=== PATIENT | female | born 1960 | race Caucasian/White ===

== ENCOUNTER 2019-11-15 09:12 | Outpatient (CLI) | payer OTHER, SELFPAY ==
--- NOTE | ~2019-11-15 | MM_ITS ---
EXAMINATION: MM screening [facility] BI w renee HISTORY: Screening mammogram TECHNIQUE: Craniocaudal and mediolateral oblique 3-D tomosynthesis images were obtained and synthetic 2-D images were generated. CAD analysis was submitted and interpreted. COMPARISON: Comparison to multiple prior studies sequentially, with oldest reviewed study dated 05/17. BREAST PARENCHYMAL COMPOSITION: There are scattered areas of fibroglandular density. FINDINGS: There are bilateral subpectoral silicone implants. There is no evidence of suspicious mass, calcification, or architectural distortion to suggest malignancy in either breast. There has been no suspicious interval change. IMPRESSION: 1. No mammographic evidence of malignancy. 2. Recommend routine screening mammography in one year. BI-RADS Category 1: Negative Reviewed, dictated and finalized at location A.
== END 2019-11-15 09:13 | disposition home or self-care (01) ==
LOC: ANHIMG 09:19
PROVIDERS: PCP Family Medicine Adolescent Medicine; Visit Provider Family Medicine Adolescent Medicine
DX: Z12.31 Encounter for screening mammogram for malignant neoplasm of breast (principal)
CPT/HCPCS: 77063; 77067

== ENCOUNTER 2020-11-24 11:48 | Outpatient (CLI) | payer OTHER, SELFPAY ==
--- NOTE | ~2020-11-24 | CT_ITS ---
EXAMINATION: CT abdomen pelvis w con DATE: 11/24/2020 12:15 INDICATION: Right lower quadrant abdominal pain and epigastric pain. TECHNIQUE: Computed tomography (CT) of the abdomen and pelvis was performed with 100 mL Omnipaque-350 intravenous contrast. Automated exposure control and iterative reconstruction technique were employe d. The dose-length product was 240.94 mGy-cm. COMPARISON: Abdomen and pelvis CT dated 08/12/2007 and MRI dated 08/23/2007 FINDINGS: Bilateral breast implants on the nuclear auxiliary operator topogram, the left partially visualized on the CT images. Mini mal lingular atelectasis visualized inferior portion of the heart appears normal. No pericardial or p leural effusion. Small sliding-type hiatal hernia. Focal hepatic steatosis at the ligamentum teres. S mall region of parenchymal scarring with capsular retraction at the periphery of segment 3 of the mikael er at the site of a couple prior 1.8 and 1.5 cm hepatic cyst. There are 3 additional low-attenuation lesions in the liver measuring between 7 mm and 1.4 cm in maximal diameters corresponding to addition al cysts on the prior MRI. Gallbladder, spleen, pancreas, bilateral adrenal glands and kidneys are no rmal. There are multiple loops of dilated jejunum measuring up to 4.4 cm in maximal diameter. No sing le clearly defined transition point identified however there are of the decompressed loops of more di stal small bowel with at least one loop demonstrating edematous wall thickening consistent with enter itis. The colon is largely decompressed with a few scattered diverticula without adjacent inflammator y change to suggest diverticulitis. Small amount of gas within a short appendix versus appendiceal st ump at the tip of the cecum without adjacent inflammatory stranding to suggest acute appendicitis. Th e uterus and bilateral ovaries are not identified and have likely been surgically resected. There are several clips in the left and right pelvis consistent with prior pelvic lymph node dissection. Decom pressed bladder is unremarkable. Small amount of ascites in the pelvis. No abscess or free intraperit ariza gas. No pathologically enlarged abdominal or pelvic lymphadenopathy. The major vessels in the a bdomen and pelvis appear normal with no thrombosis or evident atherosclerosis or stenosis. 23 degree thoracolumbar dextroscoliosis with mild to moderate spondylosis. IMPRESSION: 1. Multiple dilated loops of small bowel in the abdomen without a discrete transition point but with wall thickening involving one of several decompressed loops of small bowel in the pelvis. This favors an ileus related to enteritis over early or partial small bowel obstruction which could be related t o stricture. Enteritis could be either infectious, inflammatory or less likely ischemic in etiology. 2. Small sliding-type hiatal hernia. 3. Small amount of likely reactive ascites in the pelvis. No abscess. Reviewed, dictated and finalized at location A. IMPRESSION: 1. Multiple dilated loops of small bowel in the abdomen without a discrete gale sition point but with wall thickening involving one of several decompressed loo ps of small bowel in the pelvis. This favors an ileus related to enteritis over early or partial small bowel obstruction which could be related to stricture. Enteritis could be either infectious, inflammatory or less likely ischemic in e tiology. 2. Small sliding-type hiatal hernia. 3. Small amount of likely reactive ascites in the pelvis. No abscess.
== END 2020-11-24 11:49 | disposition home or self-care (01) ==
LOC: ANHIMG 11:54
PROVIDERS: PCP Family Medicine Adolescent Medicine; Visit Provider Family Medicine Adolescent Medicine
DX: R10.13 Epigastric pain (principal); K44.9 Diaphragmatic hernia without obstruction or gangrene
CPT/HCPCS: 74177; Q9967

== ENCOUNTER → 2020-12-03 13:58 | Outpatient (CLI) | payer OTHER, SELFPAY ==
--- NOTE | ~2020-12-03 | MM_ITS ---
EXAMINATION: MM scrn evan implant BI w renee HISTORY: Screening mammogram TECHNIQUE: Craniocaudal and mediolateral oblique 3-D tomosynthesis images with implant displacement a nd synthetic 2-D images were generated. Craniocaudal and mediolateral oblique views of the breasts wi thout implant displacement were obtained using full field digital mammography. CAD analysis was submi tted and interpreted. COMPARISON: 06/02/2016 BREAST PARENCHYMAL COMPOSITION: The breasts are heterogeneously dense, which may obscure small masses . FINDINGS: There is no evidence of suspicious mass, calcification, or architectural distortion to sugg est malignancy in either breast. There has been no suspicious interval change. IMPRESSION: 1. No mammographic evidence of malignancy. 2. Recommend routine screening mammography in one year. BI-RADS Category 1: Negative Reviewed, dictated and finalized at location A.
== END ==
PROVIDERS: PCP Family Medicine Adolescent Medicine; Visit Provider Family Medicine Adolescent Medicine
DX: Z12.31 Encounter for screening mammogram for malignant neoplasm of breast (principal)
CPT/HCPCS: 77063; 77067

== ENCOUNTER → 2022-02-17 10:13 | Outpatient (CLI) | payer OTHER, SELFPAY ==
--- NOTE | ~2022-02-17 | MM_ITS ---
EXAMINATION: MM scrn evan implant BI w renee HISTORY: Screening mammogram TECHNIQUE: Craniocaudal and mediolateral oblique 3-D tomosynthesis images with implant displacement a nd synthetic 2-D images were generated. Craniocaudal and mediolateral oblique views of the breasts wi thout implant displacement were obtained using full field digital mammography. CAD analysis was submi tted and interpreted. COMPARISON: Comparison to multiple prior studies sequentially, with oldest reviewed study dated 05/16. BREAST PARENCHYMAL COMPOSITION: There are scattered areas of fibroglandular density. FINDINGS: There is no evidence of suspicious mass, calcification, or architectural distortion to sugg est malignancy in either breast. There has been no suspicious interval change. IMPRESSION: 1. No mammographic evidence of malignancy. 2. Recommend routine screening mammography in one year. BI-RADS Category 1: Negative Reviewed, dictated and finalized at location A.
== END ==
PROVIDERS: PCP Family Medicine Adolescent Medicine; Visit Provider Family Medicine Adolescent Medicine
DX: Z12.31 Encounter for screening mammogram for malignant neoplasm of breast (principal)
CPT/HCPCS: 77063; 77067

== ENCOUNTER 2022-08-12 18:43 | Emergency (ER) | payer OTHER, SELFPAY ==
--- NOTE | ~2022-08-12 | XR_ITS ---
EXAMINATION: XR elbow RT min 3V DATE: 08/12/2022 19:44 INDICATION: Right elbow injury. TECHNIQUE: 4 views of right elbow were obtained. COMPARISON: None. FINDINGS: There is an oblique supracondylar fracture of distal humerus. The distal fracture fragment demonstrates 6 mm medial displacement, impaction, and rotation. The elbow joint spaces are normal. Th ere is an elbow joint effusion. IMPRESSION: 1. Oblique supracondylar fracture of distal humerus. Reviewed, dictated and finalized at location A. CTURAL FITTER
[2022-08-12 18:45] VITALS: BP 124/74; PULSE 77; RESP 20; TEMP 36.3; O2SAT 100
[2022-08-12] MEDS: ACETAMINOPHEN 500 MG TABLET 1000 MG PO (19:40)
--- NOTE | 2022-08-12 19:47 | ED.GENADULT ---
HPI - General Adult General Chief complaint: Extremity Injury, Upper Stated complaint: R ELBOW INJURY Time Seen by Provider: 08/12/22 19:08 History of Present Illness HPI narrative: This is a 62-year-old female presenting ED with an elbow injury. She was climbing over a dog gate when she tripped fell forward onto an outstretched hand. She then had immediate pain in her elbow. She can emergency department for evaluation. She denies numbness tingling or weakness in the extremity. She is still able to move her fingers. Related Data Home Medications Medication Instructions Recorded Confirmed ascorbic acid 125 mg-collagen, 1 cap PO DAILY 02/16/22 02/16/22 hydrolyzed 740 mg capsule (Collagen Plus Vitamin C) calcium carbonate 600 mg calcium 600 mg PO DAILY 02/16/22 02/16/22 (1,500 mg) tablet (Calcium) magnesium 250 mg tablet 250 mg PO DAILY 02/16/22 02/16/22 multivitamin (Daily Multi-Vitamin 1 tablet PO DAILY 02/16/22 02/16/22 tablet) potassium citrate 99 mg capsule 99 mg PO DAILY 02/16/22 02/16/22 valacyclovir 500 mg tablet 500 mg PO DAILY 02/16/22 02/16/22 vitamin E (dl, acetate) 180 mg 180 mg PO DAILY 02/16/22 02/16/22 (400 unit) capsule Allergies Allergy/AdvReac Type Severity Reaction Status Date / Time shellfish derived Allergy Unknown Difficulty Verified 08/12/22 19:10 Swallowing Canned Fish Allergy Unknown Difficulty Uncoded 08/12/22 19:10 Swallowing SHELLFISH Allergy Unknown Difficulty Uncoded 08/12/22 19:10 Breathing PMFSH Past Medical History Medical History Cervical cancer Scoliosis Surgical History Surgical History H/O hysterectomy with oophorectomy 2002 Hx of breast augmentation Family History Family History Mother Family history of coronary artery disease Patient's mother is in good health Grandparent Family history of type 2 diabetes mellitus Father Hypertension Sibling Patient's sister is in good health Other Cerebrovascular accident Family history of malignant neoplasm of male breast Social History Social History Smoking status: Never smoker Second hand tobacco smoke exposure: Yes Alcohol intake: never Substance use: never Substance use type: does not use Living arrangements: with family Occupation/Education: occupation Gender identity (if verbalized by the patient): Female Sexual Orientation (if Verbalized by the Patient): Straight or Heterosexual Spiritual care concerns: No Agree to blood products: Yes Exam Narrative: APPEARANCE: No apparent distress. Patient is holding her elbow close to her body Head: atraumatic. EYES: EOMI, NOSE: Atraumatic NECK: Trachea midline RESPIRATORY: No increased rate of breathing CARDIOVASCULAR: RRR, ABDOMINAL: Non-distended MUSCULOSKELETAl: focal exam of the right elbow revealed no obvious deformity or ecchymosis. Patient is able to give a thumbs up, okay sign and dorsiflex the wrist against pressure. Cap refills less than 2 seconds and radial ulnar pulses are intact. NEURO: Alert. Moving 4/4 extremities SKIN:: Warm, dry. Normal color PSYCHIATRIC: Normal affect Course Vital Signs Vital signs: Vital Signs Temperature 97.3 F L 08/12/22 18:45 Pulse Rate 77 08/12/22 18:45 Respiratory Rate 20 08/12/22 18:45 Blood Pressure 124/74 08/12/22 18:45 Pulse Oximetry 100 08/12/22 18:45 Oxygen Delivery Room Air 08/12/22 18:45 Temperature 97.3 F L 08/12/22 18:45 Pulse Rate 77 08/12/22 18:45 Respiratory Rate 20 08/12/22 18:45 Blood Pressure 124/74 08/12/22 18:45 Pulse Oximetry 100 08/12/22 18:45 Oxygen Delivery Room Air 08/12/22 18:45 Medical Decision Making [facility] Narrative Medical decision making narrative: -Presentation: 62
[2022-08-12 21:26] LABS: Basophils Percent Auto 0.3 % (0.2-1.2); Eosinophils Absolute Auto 0.1 K/mm3 (0-0.3); Eosinophils Percent Auto 1.5 % (0-4.4); Hematocrit 37.8 % (37.0-47.0); Hemoglobin 12.7 g/dL (12.0-15.0); Immature Granulocyte Absolute 0.02 K/mm3 (0.00-0.031); Immature Granulocyte Percent A 0.2 % (0-0.5); Lymphocytes Absolute Auto 0.73 K/mm3 (0.9-3.2); Lymphocytes Percent Auto 8.4 % (18.3-44.2); Mean Corpuscular HGB Conc 33.6 g/dl (32-36); Mean Corpuscular Hemoglobin 31.1 pg (26-34); Mean Corpuscular Volume 92.4 fl (80-100); Mean Platelet Volume 9.4 fl (7.4-10.4); Monocytes Absolute Auto 0.6 K/mm3 (0.1-0.6); Monocytes Percent Auto 6.5 % (2.6-8.5); Neutrophils Absolute Auto 7.2 K/mm3 (1.3-6.7); Neutrophils Percent Auto 83.1 % (45.5-73.1); Platelet Count Result 260 k/mm3 (150-375); Red Blood Count 4.09 M/mm3 (4.2-5.4); White Blood Count 8.6 K/mm3 (4.5-10.0)
[2022-08-12 21:36] LABS: Influenza A QL RT-PCR Negative (Negative); Influenza B QL RT-PCR Negative (Negative); SARS-CoV-2 RNA PCR Negative
[2022-08-12 21:38] LABS: Prothrombin Time 12.9 Seconds (11.1-14.7)
[2022-08-12 21:39] LABS: Partial Thromboplastin Time 24.4 SECONDS (22.3-36.8)
[2022-08-12 21:41] LABS: Anion Gap 4 mmol/L (8-16); Blood Urea Nitrogen 11 mg/dL (7-17); Calcium 8.4 mg/dL (8.4-10.2); Carbon Dioxide 28 mmol/L (22-30); Chloride 98 mmol/L (98-107); Estimated CRCL calculation 75 ml/min; Estimated Glomerular Filt Rate > 60; Glucose 117 mg/dL (65-110); Magnesium 1.8 mg/dL (1.6-2.3); Potassium 3.4 mmol/L (3.4-5.0); Sodium 130 mmol/L (137-145)
[2022-08-12 22:47] VITALS: BP 134/80; PULSE 97; RESP 18; O2SAT 98
== END 2022-08-12 22:49 | disposition short-term general hospital (02) ==
PROVIDERS: Emergency Provider Emergency Medicine; PCP Family Medicine Adolescent Medicine
DX: S42.411A Displaced simple supracondylar fracture without intercondylar fracture of right humerus, initial encounter for closed fracture (principal); Z20.822 Contact with and (suspected) exposure to COVID-19; I10 Essential (primary) hypertension; Z85.41 Personal history of malignant neoplasm of cervix uteri; W18.09XA Striking against other object with subsequent fall, initial encounter
CPT/HCPCS: 36415; 73080; 80048; 83735; 85025; 85610; 85730; 86850; 86900; 86901; 87636; 99285; A4565; A9270

== ENCOUNTER 2023-02-26 03:17 | Day surgery (SDC) | payer OTHER, SELFPAY ==
[2023-02-14 12:33] VITALS: BMI 19.1
[2023-02-26 07:11] VITALS: BP 125/74; PULSE 69; RESP 16; TEMP 36.6; O2SAT 100
[2023-02-26] MEDS: LACTATED RINGERS 1,000 ML 150 ML IV CONT (07:15)
--- NOTE | 2023-02-26 07:26 | PM.HPGS ---
History of Present Illness History of Present Illness Consent: Risks, benefits, and alternatives have been discussed and questions answered. Patient agrees to proceed with procedure. Chief complaint: occult blood in stool Narrative: Glo Junior is a 63 year old female Presents for colonoscopy. Patient recently found to have positive FIT test. Patient denies any obvious blood in her stools. Her current weight appetite bowel movements are normal. Patient denies abdominal pain. She has had no bleeding. Family history noncontributory. Review of Systems Review of Systems: Review of systems noncontributory. [facility] Past Medical History Medical History Cervical cancer Scoliosis Surgical History Surgical History H/O hysterectomy with oophorectomy 2002 Hx of breast augmentation Family History Family History Mother Family history of coronary artery disease Patient's mother is in good health Grandparent Family history of type 2 diabetes mellitus Father Hypertension Sibling Patient's sister is in good health Other Cerebrovascular accident Family history of malignant neoplasm of male breast Social History Social History (Updated 12/20/22 @ 13:46 by Micaela Hanley CMA) Smoking status: Never smoker Second hand tobacco smoke exposure: Yes Alcohol intake: current Substance use: never Substance use type: does not use Lack of Transportation: No Lack of Food: Never True Current Housing: I Have Housing Concerned About Future Housing: No Difficulty Paying Gas/Electric Bills: No Difficulty Paying for Meds: No Currently Unemployed: YES Education: High School Diploma/GED Difficulty w/ Childcare or Family Care: No Living arrangements: with family Occupation/Education: occupation Gender identity (if verbalized by the patient): Female Sexual Orientation (if Verbalized by the Patient): Straight or Heterosexual Spiritual care concerns: No Agree to blood products: Yes Meds Home Medications and Allergies Home Medications Medication Instructions Recorded Confirmed Type ascorbic acid 125 mg-collagen, 1 cap PO DAILY 02/16/22 02/26/23 History hydrolyzed 740 mg capsule (Collagen Plus Vitamin C) calcium carbonate 600 mg calcium 600 mg PO DAILY 02/16/22 02/26/23 History (1,500 mg) tablet (Calcium) magnesium 250 mg tablet 250 mg PO DAILY 02/16/22 02/26/23 History multivitamin (Daily Multi-Vitamin 1 tablet PO DAILY 02/16/22 02/26/23 History tablet) potassium citrate 99 mg capsule 99 mg PO DAILY 02/16/22 02/26/23 History valacyclovir 500 mg tablet 500 mg PO DAILY 02/16/22 02/26/23 History vitamin E (dl, acetate) 180 mg 180 mg PO DAILY 02/16/22 02/26/23 History (400 unit) capsule propranolol 20 mg tablet 20 mg PO BID #60 tabs 09/18/22 02/26/23 Rx alprazolam 1 mg tablet 1 mg PO BID #60 tabs 02/06/23 02/26/23 Rx zolpidem 10 mg tablet 10 mg PO QHS PRN sleep #30 tabs 02/06/23 02/26/23 Rx biotin 1,000 mcg chewable tablet 1,000 mcg PO DAILY 02/14/23 02/26/23 History cholecalciferol (vitamin D3) 125 125 mcg PO DAILY 02/14/23 02/26/23 History mcg (5,000 unit) tablet (Vitamin D3) zinc 50 mg tablet 50 mg PO DAILY 02/14/23 02/26/23 History Allergies Allergy/AdvReac Type Severity Reaction Status Date / Time shellfish derived Allergy Severe Difficulty Verified 02/26/23 07:10 Swallowing Canned Fish Allergy Severe Difficulty Uncoded 02/26/23 07:10 Swallowing Vital Signs Vital Signs - 24 hr 02/26/23 07:11 Temperature 97.9 F Pulse Rate 69 Respiratory Rate 16 Blood Pressure 125/74 Pulse Oximetry 100 Oxygen Delivery Room Air Exam Narrative: Physical exam reveals patient to be alert. Vital signs stable. HEENT exam is unremarkable. Patient is anicteric. Lungs are clear to
--- NOTE | 2023-02-26 08:22 | WPDANESEPPF ---
Anes - Initial Pre Proc Eval Procedure: Operation Date: 02/26/23 08:30 Proposed Procedures p Colonoscopy - Bert Adair MD Date/Time: 02/26/23 08:22 Surgeon: Bert Adair MD Pre Op Diagnosis: occult blood in stool Patient Data Age: 63 Gender: F Height: 1.7 m Weight: 53.1 kg Last Vital Signs Temp 97.9 F 02/26/23 07:11 Pulse 69 02/26/23 07:11 Resp 16 02/26/23 07:11 BP 125/74 02/26/23 07:11 Pulse Ox 100 02/26/23 07:11 O2 Del Method Room Air 02/26/23 07:11 Allergies Allergy/AdvReac Type Severity Reaction Status Date / Time shellfish derived Allergy Severe Difficulty Verified 02/26/23 07:10 Swallowing Canned Fish Allergy Severe Difficulty Uncoded 02/26/23 07:10 Swallowing Home Medications Medication Instructions Recorded Confirmed Type ascorbic acid 125 mg-collagen, 1 cap PO DAILY 02/16/22 02/26/23 History hydrolyzed 740 mg capsule (Collagen Plus Vitamin C) calcium carbonate 600 mg calcium 600 mg PO DAILY 02/16/22 02/26/23 History (1,500 mg) tablet (Calcium) magnesium 250 mg tablet 250 mg PO DAILY 02/16/22 02/26/23 History multivitamin (Daily Multi-Vitamin 1 tablet PO DAILY 02/16/22 02/26/23 History tablet) potassium citrate 99 mg capsule 99 mg PO DAILY 02/16/22 02/26/23 History valacyclovir 500 mg tablet 500 mg PO DAILY 02/16/22 02/26/23 History vitamin E (dl, acetate) 180 mg 180 mg PO DAILY 02/16/22 02/26/23 History (400 unit) capsule propranolol 20 mg tablet 20 mg PO BID #60 tabs 09/18/22 02/26/23 Rx alprazolam 1 mg tablet 1 mg PO BID #60 tabs 02/06/23 02/26/23 Rx zolpidem 10 mg tablet 10 mg PO QHS PRN sleep #30 tabs 02/06/23 02/26/23 Rx biotin 1,000 mcg chewable tablet 1,000 mcg PO DAILY 02/14/23 02/26/23 History cholecalciferol (vitamin D3) 125 125 mcg PO DAILY 02/14/23 02/26/23 History mcg (5,000 unit) tablet (Vitamin D3) zinc 50 mg tablet 50 mg PO DAILY 02/14/23 02/26/23 History Patient hx anesthesia problems: none Family hx anesthesia problems: none Results Review: All pre-operative results and documents have been reviewed as part of the pre-operative evaluation. [facility] Past Medical History Medical History Cervical cancer Scoliosis Surgical History Surgical History H/O hysterectomy with oophorectomy 2002 Hx of breast augmentation Family History Family History Mother Family history of coronary artery disease Patient's mother is in good health Grandparent Family history of type 2 diabetes mellitus Father Hypertension Sibling Patient's sister is in good health Other Cerebrovascular accident Family history of malignant neoplasm of male breast Social History Social History (Updated 12/20/22 @ 13:46 by Micaela Hanley [facility]) Smoking status: Never smoker Second hand tobacco smoke exposure: Yes Alcohol intake: current Substance use: never Substance use type: does not use Lack of Transportation: No Lack of Food: Never True Current Housing: I Have Housing Concerned About Future Housing: No Difficulty Paying Gas/Electric Bills: No Difficulty Paying for Meds: No Currently Unemployed: YES Education: High School Diploma/GED Difficulty w/ Childcare or Family Care: No Living arrangements: with family Occupation/Education: occupation Gender identity (if verbalized by the patient): Female Sexual Orientation (if Verbalized by the Patient): Straight or Heterosexual Spiritual care concerns: No Agree to blood products: Yes Anes - Eval Final PreProcedure Day of Procedure 02/26/23 08:22 Patient weight: normal Heart: regular rate and rhythm Lungs: clear to auscultation Airway: Mallampati scale class II Neurological: alert and oriented Last oral intake: >/= 8 hours ASA classification: II Emergent: no Anesthetic plan
[2023-02-26 08:43] VITALS: BP 113/51; PULSE 77; RESP 18; O2SAT 100
[2023-02-26 08:53] VITALS: BP 106/70; PULSE 68; RESP 22; O2SAT 100
[2023-02-26 09:03] VITALS: BP 104/68; PULSE 70; RESP 16; O2SAT 100
== END 2023-02-26 09:08 | disposition home or self-care (01) ==
PROVIDERS: PCP Family Medicine Adolescent Medicine; Visit Provider Internal Medicine Gastroenterology
PROC: 0DJD8ZZ Inspection of Lower Intestinal Tract, Via Natural or Artificial Opening Endoscopic (ICD-10-PCS; CPT 45378; principal; 2023-02-26 08:30)
DX: Z12.11 Encounter for screening for malignant neoplasm of colon (principal); R19.5 Other fecal abnormalities; K51.40 Inflammatory polyps of colon without complications; K64.8 Other hemorrhoids; Z85.41 Personal history of malignant neoplasm of cervix uteri
CPT/HCPCS: 45385; 88305; J2704; J7120

== ENCOUNTER → 2023-03-20 12:02 | Outpatient (CLI) | payer OTHER, SELFPAY ==
--- NOTE | ~2023-03-20 | MM_ITS ---
EXAMINATION: MM scrn evan implant BI w renee HISTORY: Screening mammogram TECHNIQUE: Craniocaudal and mediolateral oblique 3-D tomosynthesis images with implant displacement a nd synthetic 2-D images were generated. Craniocaudal and mediolateral oblique views of the breasts wi thout implant displacement were obtained using full field digital mammography. CAD analysis was submi tted and interpreted. COMPARISON: 02/17/2022, 12/03/2020, 11/15/2019 bilateral implant screening mammogram examinations BREAST PARENCHYMAL COMPOSITION: The breasts are heterogeneously dense, which may obscure small masses . FINDINGS: Status post bilateral augmentation mammoplasty. There is no evidence of suspicious mass, ca lcification, or architectural distortion to suggest malignancy in either breast. There has been no ritter spicious interval change. IMPRESSION: 1. No mammographic evidence of malignancy. 2. Recommend routine screening mammography in one year. BI-RADS Category 1: Negative Reviewed, dictated and finalized at location A.
== END ==
PROVIDERS: PCP Family Medicine Adolescent Medicine; Visit Provider Family Medicine Adolescent Medicine
DX: Z12.31 Encounter for screening mammogram for malignant neoplasm of breast (principal)
CPT/HCPCS: 77063; 77067

== ENCOUNTER → 2023-06-18 12:15 | Outpatient (CLI) | payer OTHER, SELFPAY ==
--- NOTE | ~2023-06-18 | DEXA_ITS ---
Bone Density Report Name: NUHA BELLO Age: 63 Sex: Female Ethnicity: White Date of : 1960 Indication: osteopenia; prior fracture; asthma or emphysema; hysterectomy; postmenopausal Referring Provider: BRANDIN LEWIS Study: Bone densitometry was performed. Exam Date: June 18, 2023 Accession number: [id number] Bone Density: Region BMD T-score Z-score Classification AP Spine (L1-L4) 0.927 -1.1 0.5 Osteopenia Femoral Neck (Left) 0.700 -1.3 0.0 Osteopenia Total Hip (Left) 0.770 -1.4 -0.3 Osteopenia Femoral Neck (Right) 0.727 -1.1 0.3 Osteopenia Total Hip (Right) 0.755 -1.5 -0.5 Osteopenia Total Hip Mean 0.763 -1.5 -0.4 Osteopenia World Health Organization criteria for BMD impression classify patients as: Normal (T-score at or above -1.0), Osteopenia (T-score between -1.0 and -2.5), or Osteoporosis (T-score at or below -2.5). 10-year Fracture Risk(1): Major Osteoporotic Fracture 12% Hip Fracture 1.1% Reported Risk Factors: [place] (), Neck BMD=0.700, BMI=19.1, previous fracture (1) FRAX(R) Version 3.08. Fracture probability calculated for an untreated patient. Fracture probability may be lower if the patient has received treatment. Previous Exams: Region Exam Age BMD T-score BMD Change BMD Change Date g/cm2 vs Baseline vs Previous AP Spine(L1-L4) 06/18/2023 63 0.927 -1.1 -0.012 -0.012 02/14/2018 58 0.938 -1.0 Total Hip(Left) 06/18/2023 63 0.770 -1.4 -0.043* -0.043* 02/14/2018 58 0.813 -1.1 Total Hip(Right) 06/18/2023 63 0.755 -1.5 -0.076* -0.076* 02/14/2018 58 0.831 -0.9 *Denotes significance at 95% confidence level, LSC for AP Spine = 0.022 g/cm2, LSC for Total Hip = 0.027 g/cm2 Clinical Information Provided by Patient: Has had a low trauma fracture Has used the following medications: Vitamin D, Calcium Has the following medical conditions: Asthma or Emphysema, Hysterectomy Patient maximum height was 67 Menopause Age: 43 No regular weight bearing exercise Drinks caffeinated beverages Onset of menses at age 16 Number of children 5 Impression: The patient has low bone mass, based on the Right Total Hip T-score. The patient has an estimated ten-year risk of hip fracture of 1.1% and an estimated ten-year risk of major fracture of 12%, based on the WHO FRAX algorithm. The patient has risk factors, including: previous fracture. The BMD for the
== END ==
PROVIDERS: PCP Family Medicine Adolescent Medicine; Visit Provider Obstetrics & Gynecology Gynecology
DX: Z78.0 Asymptomatic menopausal state (principal); M85.88 Other specified disorders of bone density and structure, other site; M85.852 Other specified disorders of bone density and structure, left thigh; M85.851 Other specified disorders of bone density and structure, right thigh
CPT/HCPCS: 77080

== ENCOUNTER 2024-06-30 11:02 | Outpatient (CLI) | payer OTHER, SELFPAY ==
--- NOTE | ~2024-06-30 | XR_ITS ---
Clinical Indication: Asthma PA and lateral views of the chest: Comparison: None Findings: The lungs are clear, without evidence of focal consolidation or pleural effusion. Cardiome diastinal silhouette is within normal limits. Bones and soft tissues are unremarkable. Impression: Normal chest. Reviewed, dictated and finalized at location . EMS ARCHITECT Impression: Normal chest.
== END 2024-06-30 11:03 | disposition home or self-care (01) ==
LOC: MICIMG 11:03
PROVIDERS: PCP Family Medicine Adolescent Medicine; Visit Provider Nurse Practitioner Family
DX: J45.909 Unspecified asthma, uncomplicated (principal)
CPT/HCPCS: 71046

== ENCOUNTER 2024-07-10 13:28 | Outpatient (CLI) | payer OTHER, SELFPAY ==
--- NOTE | ~2024-07-10 | MM_ITS ---
EXAMINATION: MM scrn evan implant BI w renee HISTORY: Screening TECHNIQUE: Craniocaudal and mediolateral oblique 3-D tomosynthesis images were obtained and synthetic 2-D images were generated. CAD analysis was submitted and interpreted. Implant displaced views were also performed. COMPARISON: 03/20/2023 and dating back to 11/15/2019 BREAST PARENCHYMAL COMPOSITION: The breasts are heterogeneously dense, which may obscure small masses . FINDINGS: Y shaped calcification within the inner left breast, stable dating back to 2019. Otherwise stable parenchymal pattern without suspicious microcalcifications, architectural distortion , discrete masses or significant asymmetry. IMPRESSION: 1. No mammographic evidence of malignancy. 2. Recommend routine screening mammography in one year. BI-RADS Category 2: Benign finding(s). Reviewed, dictated and finalized at location A.
== END 2024-07-10 13:29 | disposition home or self-care (01) ==
LOC: MICIMG 13:28
PROVIDERS: PCP Family Medicine Adolescent Medicine; Visit Provider Family Medicine Adolescent Medicine
DX: Z12.31 Encounter for screening mammogram for malignant neoplasm of breast (principal)
CPT/HCPCS: 77063; 77067

== ENCOUNTER 2024-07-11 13:24 | Outpatient (CLI) | payer OTHER, SELFPAY ==
--- NOTE | 2024-07-11 16:55 | WPDPFTINT ---
PFT Procedure Performed PFT Procedure Performed Spirometry with Pre/Post Bronchodilator Plethysmography (Lung Vol) Diffusing Cap (DLCO) Flow Vol Loop PFT Interpretation This is a pulmonary function test with pre and post-bronchodilator spirometry, plethysmography and diffusing capacity. The test was performed and results interpreted in accordance with the 2019 and 2005 ATS/ERS Task Force guidelines respectively using the Global Lung Function Initiative-2012 reference equations. Patient demonstrated good effort and cooperation. Reproducibility criteria were met. The quality of the pre bronchodilator spirometry maneuver was Grade A and post bronchodilator spirometry maneuver was Grade A. Findings: Spirometry: There is decreased maximal expiratory airflow at all lung volumes with concave expiratory flow tracing. The contour the inspiratory flow tracing is normal. The pre bronchodilator FVC is 2.61 L, 77% predicted. The pre bronchodilator FEV1 is 1.31 L, 49% predicted. The pre bronchodilator FEV1: FVC ratio is 50%. The post bronchodilator FVC is 3.00 L, representing a 15% increase. The post bronchodilator FEV1 is 1.55 L, representing an 18% increase. The post bronchodilator FEV1: FVC ratio is 52%. Plethysmography: The total lung capacity is 6.01 L, 109% predicted. The functional residual capacity is 4.28 L, 137% predicted. The residual volume is 3.40 L, 155% predicted. The residual volume: Total lung capacity ratio is 57%. Plethysmography: The diffusing capacity unadjusted for hemoglobin and carboxyhemoglobin is 13.1, 58% predicted. The diffusing capacity adjusted for alveolar volume is 4.09, 96% predicted. Impression: There is a severe obstructive abnormality. There is significant improvement after inhaling a single dose of albuterol. The increase in residual volume to total lung volume ratio is consistent with hyperinflation from an obstructive abnormality. The diffusing capacity unadjusted for hemoglobin and carboxyhemoglobin is moderately decreased and normalizes when adjusted for alveolar volume. There are no prior studies for comparison
== END 2024-07-11 13:25 | disposition home or self-care (01) ==
LOC: ANHPFT 13:25
PROVIDERS: PCP Family Medicine Adolescent Medicine; Visit Provider Nurse Practitioner Family
DX: J45.909 Unspecified asthma, uncomplicated (principal); R06.00 Dyspnea, unspecified
CPT/HCPCS: 94060; 94726; 94729

== ENCOUNTER 2024-09-17 10:09 | Outpatient (CLI) | payer OTHER, SELFPAY ==
--- NOTE | ~2024-09-17 | CT_ITS ---
EXAMINATION:CT diagnostic chest wo con DATE: 09/17/2024 10:29 INDICATION: Chronic obstructive pulmonary disease. TECHNIQUE: Computed tomography (CT) of the chest was performed without intravenous contrast. Automate d exposure control and iterative reconstruction technique were employed. The dose-length product (DLP ) was 67.21 mGy-cm. COMPARISON: CT abdomen and pelvis 11/24/2020 FINDINGS: There is mild scarring at the lung apices. There is a 3 mm nodule in right upper lobe, like ly benign. There is mild emphysema. A calcified left lung nodule and calcified mediastinal lymph node s are consistent with old granulomatous disease. There is minimal atelectasis bilaterally. No pleural effusion. The heart size is normal. No pericardial effusion. There are bilateral breast implants. Th ere is mild thoracic spondylosis. IMPRESSION: 1. Mild emphysema. Reviewed, dictated and finalized at location A. FLOW DEVELOPER IMPRESSION: 1. Mild emphysema.
--- OUTSIDE RECORDS SUMMARY | 2024-09-17 11:12 | XMS_ITS | Encounter Summary ---
Author Organization [facility] Address [address] [place] [address] Care Team Providers Care Buckle Attacher Name Role Phone Otf Adams MD Primary Care Provider + Encounter Details Date Type Department Care Team (Late Contact Info) Description 10/10/[address] [facility] - DermPath Lab [address] [place] [phone] Evaristo Stacy MD [address] [place] [address] Social History Tobacco Use Types Packs/Day Years Used Date Smoking Tobacco: Never Smokeless Tobacco: Never Alcohol Use Standard Drinks/Week Comments Yes 0 (1 standard drink = 0.6 oz pur e alcohol) rare Sex and Gender Information Value Date Recorded Sex Assigned at Not on file Gender Identity Not on file Sexual Orientation Not on file documented as of this encounter Plan of Treatment Upcoming Encounters Date Type Department Care Team (Late Contact Info) Description 11/10/2024 10:30 AM CDT Office Visit [facility] - SCHOOL PLANT CONSULTANT [address] [place] [phone] Seth Locke MD [address] [facility] [address] [place], [place] [phone] documented as of this encounter Procedures Procedure Name Priority Date/Time Associated Diagnosis Comments DERMATOPATHOLOGY Routine 10/10/2023 12:0 0 AM CDT documented in this encounter Results * DERMATOPATHOLOGY (10/10/2023 12:00 AM CDT) Case Report Dermatopathology Report Case: [id number] Authorizing Provider: Evaristo Stacy MD Collected: 10/10/2023 12:00 AM Ordering Location: [facility] - Received: 10/10/2023 04:19 PM DermPath Lab Pathologist: Sherry Chen MD Specimens: A) - Skin, right labia B) - Skin, right tib 1:34 PM CDT DERMATOPATHOLOGY LABORATORY Final Diagnosis Specimen A. 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 SKIN, right tib: SQUAMOUS CELL CARCINOMA, WELL DIFFERENTIATED (C44.722) 1:34 PM CDT DERMATOPATHOLOGY LABORATORY Clinical History A-B: r/o Verruca, Molluscum, Neoplasm 1:34 PM CDT DERMATOPATHOLOGY LABORATORY Gross Description Specimen A: Received is one formalin filled container labeled with the patient's name and designated right labia. The specimen consists of a shave biopsy measuring 8x4x1, 3x3x1, 4x3x1 mm. Jar 0. Specimen B: Received is one formalin filled container labeled with the patient's name and designated right tib. The specimen consists of a shave biopsy measuring 7x5x1 mm. Jar 0. 1:34 PM CDT DERMATOPATHOLOGY LABORATORY Microscopic Description Specimen A. SKIN, right labia: There are numerous endothelial-lined spaces, containing eosinophilic material in the upper part of the dermis. Specimen B. SKIN, right tib: Arising in the epidermis and extending into the dermis there are irregularly shaped aggregates of keratinocytes showing evidence of premature cornification. 1:34 PM CDT DERMATOPATHOLOGY LABORATORY Disclaimer An external and internal positive and negative controls are appropriate for the histochemical, immunohistochemical and immunofluorescence stain(s) in this case (if any), except where stated explicitly. The performance characteristics of the stain(s) cited in this report were developed and its performance characteristic determined by the Dermatopathology Laboratory at [facility], directed by Dr. Gene Moscoso. These tests need not be, and therefore are not, approved by the [place] Food and Drug Administration. The tests are used for clinical purposes. Billing Codes Specimen Charges Stain Charges 90685 02857 1 1 4 1:34 PM CDT DERMATOPATHOLOGY LABORATORY Embedded Images 1:34 PM CDT DERMATOPATHOLOGY LABORATORY Pathology/Cytology TISSUE SPECIMEN FROM SKIN / Unknown 10/10/2023 10/10/2023 4:19 PM CDT Miscellaneous samples (specimen) TISSUE SPECIMEN FROM SKIN / Unknown 10/10/2023 10/10/2023 4:19 PM CDT Evaristo Stacy MD LAB - PATHOLOGY/CYTO LOGY ORDERABLES DERMATOPATHOLOGY LABORATORY [facility] - Department of Dermatology [address], [address] [phone] documented in this encounter Visit Diagnoses Not on filedocumented in this encounter Care Teams Buckle Attacher Relationship Specialty Start Date End Date Otf Adams MD [address] [address] PCP - General 11/28/17 documented as of this encounter
--- OUTSIDE RECORDS SUMMARY | 2024-09-17 11:13 | XMS_ITS | Encounter Summary ---
Author Organization [facility] Address [address] [place] [address] Care Team Providers Care Skiver Welt End Name Role Phone Otf Adams MD Primary Care Provider + Encounter Details Date Type Department Care Team (Late Contact Info) Description 06/22/2021 Lab Requisition [facility] DermPath Lab [address] [place] [phone] Evaristo Stacy MD [address] [place] [address] Social History Tobacco Use Types Packs/Day Years Used Date Smoking Tobacco: Never Smokeless Tobacco: Never Alcohol Use Standard Drinks/Week Comments No 0 (1 standard drink = 0.6 oz pur e alcohol) Sex and Gender Information Value Date Recorded Sex Assigned at Not on file Gender Identity Not on file Sexual Orientation Not on file documented as of this encounter Plan of Treatment Upcoming Encounters Date Type Department Care Team (Late Contact Info) Description 11/10/2024 10:30 AM CDT Office Visit [facility] - TAP PULLER [address] [facility] [address] [place] [address] Seth Locke MD [address] [facility] [address] [place], [place] [phone] documented as of this encounter Procedures Procedure Name Priority Date/Time Associated Diagnosis Comments DERMATOPATHOLOGY Routine 06/20/2021 3:33 AM [facility] DI[employer] SERVICE MANAGER documented in this encounter Results * DERMATOPATHOLOGY (06/20/2021 3:33 AM [facility]) Case Report Dermatopathology Report Case: [id number] Authorizing Provider: Evaristo Stacy MD Collected: 06/20/2021 03:33 AM Ordering Location: [facility] DermPath Lab Received: 06/22/2021 06:36 AM Pathologist: Barbra Moscoso MD Specimen: Skin, left thigh 6:09 PM [facility] DERMATOPATHOLOGY LABORATORY Final Diagnosis Specimen A. SKIN, left thigh: ACUTE SPONGIOTIC DERMATITIS (L30.8) (see microscopic description and comment) 6:09 PM [facility] DERMATOPATHOLOGY LABORATORY Clinical History R/O Lp/lichen/nitidus/m olluscum/HSV. 6:09 PM [facility] DERMATOPATHOLOGY LABORATORY Gross Description Specimen A: Received is one formalin filled container labeled with the patient's name and designated left thigh. The specimen consists of a shave biopsy measuring 3q3d3ow & 4y0h5qf. Jar 0. 6:09 PM [facility] DERMATOPATHOLOGY LABORATORY Microscopic Description Specimen A. SKIN, left thigh: There is focal parakeratosis and a spongiotic vesicle of the epidermis. In the dermis there is a mainly superficial perivascular lymphoid infiltrate. Grocott's methenamine silver (GMS) stain is negative for fungal elements in the sections examined. HSV is non-reactive. COMMENT: These histological findings are consistent with an eczematous dermatitis. An underlying process cannot be excluded. 6:09 PM [facility] DERMATOPATHOLOGY LABORATORY Disclaimer An external and internal positive and negative controls are appropriate for the histochemical, immunohistochemical and immunofluorescence stain(s) in this case (if any), except where stated explicitly. The performance characteristics of the stain(s) cited in this report were developed and its performance characteristic determined by the Dermatopathology Laboratory at [facility], directed by Dr. Gene Moscoso. These tests need not be, and therefore are not, approved by the [place] Food and Drug Administration. The tests are used for clinical purposes. Billing Codes Specimen Charges Stain Charges 28002 1 [id number] [id number] 1 1 1 6:09 PM KOSHER DIETARY SERVICE MANAGER DERMATOPATHOLOGY LABORATORY Embedded Images 1 6:09 PM [employer]OSHER DIETARY SERVICE MANAGER DERMATOPATHOLOGY LABORATORY Pathology/Cytolo gy TISSUE SPECIMEN FROM SKIN / Unknown 06/20/2021 3:33 AM [employer] DIETARY SERVICE MANAGER 06/22/2021 6:36 AM KOS[employer] DIETARY SERVICE MANAGER Evaristo Stacy MD LAB - PATHOLOGY/CYTO LOGY ORDERABLES DERMATOPATHOLOGY LABORATORY [facility] - Department of Dermatology [facility] [address] [place] [address], [address] [phone] documented in this encounter Visit Diagnoses Not on filedocumented in this encounter Care Teams Skiver Welt End Relationship Specialty Start Date End Date Otf Adams MD [address] [address] PCP - General 11/28/17 documented as of this encounter
--- OUTSIDE RECORDS SUMMARY | 2024-09-17 11:13 | XMS_ITS | Clinical Summary ---
Author Organization [facility] Address [address] [place] [address] Care Team Providers Care Acid Changer Name Role Phone Otf Adams MD Primary Care Provider + Source Comments [facility],non-owned Affiliates and Associated Physician Practices is amultiple site organization consisting of ambulatory clinics and hospital sitesin [place], [place], [place] and [place]. This disclosure is being madepursuant to the Care Everywhere program and may not contain all information available regarding this patient. Last updated 18.[facility] Allergies Active Allergy Reactions Criticality Noted Date Comments Povidone Iodine Unknown Low 05/23/2017 unknown Shellfish Allergy Shortness of Breath,Swelling High 11/21/2017 Medications * Be aware that medications may not be up to date on this document. Alwaysverify current medications with the patient. Medication Sig Dispensed Refills Start Date End Date Status zolpidem (AMBIEN) 10 MG tablet Take 1 (one) tablet by mouth at bedtime 05/10/2017 Active Multiple Vitamin (MULTI VITAMIN PO) Take 1 tablet by mouth once daily Active Aspirin-Acetaminop hen-Caffeine (EXCEDRIN MIGRAINE PO) Take 2 tablets by mouth as needed Active propranolol (INDERAL) 20 MG tablet Take 1 (one) tablet by mouth 2 times daily 06/19/2019 Active ALPRAZolam (Xanax) 1 MG tablet Take 1 (one) tablet by mouth 2 times daily 08/14/2022 Active valACYclovir (Valtrex) 500 MG tablet Take 1 (one) tablet by mouth once daily Active VITAMIN E PO 180 mg 08/16/2022 Active Potassium (POTASSIMIN PO) Take by oral route. 08/16/2022 Active senna (Senokot) 8.6 MG tablet Take 1 (one) tablet by mouth 2 times daily Hold for loose stool or diarrhea 30 tablet 04/30/2024 Active Additional Information Patient not taking.Reported on 05/12/2024 acetaminophen (Tylenol) 325 MG tablet Take 3 (three) tablets by mouth every 6 hours as needed for Fever or Pain Maximum allowable Acetaminophen amount = 4 Grams (4000 mg) / 24 hours. 40 tablet 04/30/2024 Active MAGNESIUM PO Active CALCIUM PO Active Pyridoxine HCl (VITAMIN B-6 PO) Active Multiple Vitamins-Minerals (ZINC PO) Active Methylcobalamin (Y10-KCZHFC PO) Active Active Problems Problem Noted Date Diagnosed Date History of cervical cancer 09/04/2012 S/P augmentation mammoplasty 01/30/2011 Family History Medical History Relation Name Comments Cancer - Breast Cousin maternal Cancer - Breast Maternal Grandmother CAD (Coronary Artery Disease) Mother [place] Cancer - Colon Neg Hx Cancer - Ovarian Neg Hx Cancer - Pancreatic Neg Hx Cancer - Prostate Neg Hx Cancer - Uterine Neg Hx Relation Name Status Comments Cousin Alive Maternal Grandmother Mother Social History Tobacco Use Types Packs/Day Years Used Date Smoking Tobacco: Never Smokeless Tobacco: Never Tobacco Cessation:Counseling Given: Not Answered Alcohol Use Standard Drinks/Week Comments Yes 0 (1 standard drink = 0.6 oz pur e alcohol) rare Sex and Gender Information Value Date Recorded Sex Assigned at Not on file Gender Identity Not on file Sexual Orientation Not on file Last Filed Vital Signs Vital Sign Reading Time Taken Comments Blood Pressure 110/66 05/12/2024 9:01 AM CDT Pulse 65 04/30/2024 11:32 AM CDT Temperature 36.2 C (97.2 F) 04/30/2024 10:53 AM CDT Respiratory Rate 16 04/30/2024 11:32 AM CDT Oxygen Saturation 100% 04/30/2024 11:32 AM CDT Inhaled Oxygen Concentration - - Weight 55.3 kg (122 lb) 05/12/2024 9:01 AM CDT Height 170.2 cm (5' 7 ) 05/12/2024 9:01 AM CDT Body Mass Index 19.11 05/12/2024 9:01 AM CDT Plan of Treatment Upcoming Encounters Date Type Department Care Team (Late st Contact Info) Description 11/10/2024 10:30 AM CDT Office Visit [facility] - DISTRICT ENGINEER [address] [place] [address] Seth Locke MD [address] [facility] [address] [place] [address] Health Maintenance Due Date Last Done Comments COLOGUARD (AGES 45-75) - COLON CA SCREENING 1961 COLON MONITORING 1961 COLONOSCOPY - COLON CA SCREENING 1961 CT COLONOGRAPHY - COLON CA SCREENING 1961 Colorectal Cancer Screening 1961 FIT - COLON CA SCREENING 1961 FLEX SIG - COLON CA SCREENING 1961 LIPID TESTING 1961 MAMMOGRAM 1961 HIV SCREENING 02/01/1976 HEPATITIS C SCREENING 01/27/1979 DTAP/TDAP/TD VACCINES (1 - Tdap) 02/01/1980 PNEUMOCOCCAL VACCINE 50+ (1 of 1 - PCV) 2011 ZOSTER VACCINE (1 of 2) 2011 COVID-19 VACCINE (1 - season) 2024 INFLUENZA VACCINE (#1) 2024 DEPRESSION SCREENING 07/16/2024 PAP with HPV 11/28/2028 11/29/2023, 12/15, 06/01/2021, Additional history exists Respiratory Syncytial Virus (RSV) Vaccine Pt: or over 60 yrs (1 - 1-dose 75+ series) 02/01/2036 HEPATITIS B VACCINE Aged Out No longe r eligible based on patient's age to complete this topic HIB VACCINE Aged Out No longer eligi ble based on patient's age to complete this topic HPV VACCINE Aged Out No longer eligi ble based on patient's age to complete this topic MENINGOCOCCAL (Group B) VACCINE Aged Out No longer eligible based on patient's age to complete this topic MENINGOCOCCAL VACCINE Aged Out No [place] eligible based on patient's age to complete this topic Procedures Procedure Name Priority Date/Time Associated Diagnosis Comments HPV DETECTION HIGH RISK RANDY Routine 11/29/2023 2:38 PM CDT History of cervical cancer from Last 3 Months or Most Recently Relevant to Health Maintenance Results * HPV DETECTION HIGH RISK RANDY (11/29/2023 2:38 PM CDT) High Risk Human Papilloma Result Not detected Not detected 12/05/2023 8:27 AM CDT [facility] High Risk Human Papilloma Interp 12/05/2023 8:27 AM CDT [facility] Comment:High Risk Human H[place] lloma Virus was Not Detected. Pathology/Cytolo gy MISCELLANEOUS SAMPLES / Unknown 11/29/2023 2:38 PM CDT 11/30/2023 1:01 PM CDT Narrative [facility] - 12/05/2023 8:27 AM CDT Nucleic acid isolated from the specimen was analyzed with a nucleic acid amplification test (FDA approved Gen-Probe HPV Assay) to detect high risk human papilloma virus (Types: 16, 18, 31, 33, 35, 39, 45, 51, 52, 56, 58, 59, 66, and 68). The reference range is Not Detected . Comment: These test results should not be used as the sole basis for clinical assessment and treatment of patients. These results should always be correlated with other available data (cytology, histology, and clinical information). Seth Locke MD LAB - MICROBIOLOGY O RDERABLES [facility] [address] [phone] from Last 3 Months or Most Recently Relevant to Health Maintenance Care Teams Acid Changer Relationship Specialty Start Date End Date Otf Adams MD [address] [address] PCP - General 11/28/17
--- OUTSIDE RECORDS SUMMARY | 2024-09-17 11:13 | XMS_ITS | Data Portability ---
Author Organization [place] - [facility] [employer] [facility], Main Office Address [address] [place] [address] Care Team Providers Care Wet Pan Mixer Name Role Phone MARIA ANTONIA TANG Primary Care Provider MARIA ANTONIA TANG Referring Provider [phone] Assessment Encounter Date Assessment Date Assessment LastModified by Organization Details LastModified Time 01/30/2023 01/30/2023 62-year-old female approximately 5.5 months status post ORIF of right distal humerus supracondylar fracture on 08/23/2022. patient is doing well continues to have some stiffness in the elbow with range of motion from 20 to 130 of flexion. we discussed continuing consistent home exercises to regain her elbow range of motion and shoulder range of motion / strength. We discussed that and we are unable to remove the plate over the olecranon until she is approximately 1-1 and half years post surgery, which would be next spring/summer. She may follow-up as needed for symptoms return and or discussion of hardware removal. [email or web address] Not available 01/30/2023 10:15:12 Plan of Treatment Reminders Order Date Submit Date Provider Last Modified By Organization Details Last Modified Time Details Appointments None recorded. Lab None recorded. Referral physical therapist referral - ROM P-AA-A, MODALITIES 2022 023 [email or web address] [facility], [address], [place], [address], 14:02:50 physical therapist referral - ROM, STRENGTHEN RTC, MODALITIES , ROM-R ELBOW, STRENGTHEN TOLERATED 2022 023 ATHENAFAX [facility], [address], [place], [address], 3 14:15:26 physical therapist referral - ROM, MODALITIES , SLYTHY, CONTINUE THERAPY 2022 023 [email or web address] [facility], [address], [place], [address], 3 16:39:54 Procedures None recorded. Surgeries None recorded. Imaging XR, wrist, 3 or more view 2022 023 [email or web address] [facility] [place], [address], [place], [address], 3 12:46:14 XR, shoulder, 2 or more view 2022 023 [email or web address] [facility] [place], [address], [place], [address], 3 12:46:08 XR, elbow, 3 or more view 2022 023 [email or web address] [facility] [place], [address], [place], [address], 3 16:48:08 Medication Orders None recorded. Patient TargetsNo targets recorded. Patient InstructionsNo instructions recorded. Reason for Referral Physical Therapist Referral for Multiple closed fractures of distal humerus ROM, MODALITIES, SLYTHY, CONTINUE THERAPY Referring Physician: Ladarius Allen, Orthopedic Surgery, Encounter Date: 09/26/2022 Physical Therapist Referral for Multiple closed fractures of distal humerus ROM, STRENGTHEN RTC, MODALITIES, ROM-R ELBOW, STRENGTHEN TOLERATED Referring Physician: Ladarius Allen, Orthopedic Surgery, Encounter Date: 10/17/2022 Physical Therapist Referral for Multiple closed fractures of distal humerus ROM P-AA-A, MODALITIES Referring Physician: [facility], Encounter Date: 11/28/2022 Results Created Date Observation Date Name Description Value Unit Range Abnormal Flag Note LastModifiedBy Organization Detail LastModifiedTime 08/15/1908/12/2022 XR, elbow , 3 or more view No observ ation record ed. [id number] Not Available 09/14/2022 01:48:56 08/22/19 23 08/13/2022 CT, elbow , w/o contr ast No observ ation record ed. [id number] Not Available 09/14/2022 01:48:56 09/27/19 23 XR, elbow , 3 or more view No observ ation record ed. [email or web address] [facility] [place] [address] [facility] [address], [place], [address], 09/26/2022 16:48:07 10/18/19 23 XR, wrist , 3 or more view No observ ation record ed. [email or web address] [facility] [place] [address] [facility] [address], [place], [address], 10/17/2022 12:46:13 10/18/19 23 XR, shoul raymond, 2 or more view No observ ation record ed. [email or web address] [facility] [place] [address] [facility] [address], [place], [address], 10/17/2022 12:46:07 Result Notes None recorded. Problems Name Problem SNOMED Code Status Onset Date Resolution Date Notes Provider Name and Address Organization Details Recorded Time Multiple closed fractures of distal humerus 326592628 Active 2022 KANE Perez [employer] 3 15:36:50 Pain of right shoulder joint 42067536951046 100 Active 2022 KANE Perez [employer] [facility] [employer] 3 11:06:46 Problem Notes None recorded. Procedures Surgical History Date Name Laterality Status Provider Name and Address Organization Details Recorded Time Hysterectomy completed Not Available [employer] [facility] 09/14/2022 01:47:28 Imaging Results Imaging Date Name Status LastModified by [facility] Details LastModified Time 08/12/2022 XR, elbow, 3 or more view completed [id number] Information not available 09/14/2022 01:48:56 08/13/2022 CT, elbow, w/o contrast completed [id number] Information not available 09/14/2022 01:48:56 09/26/2022 XR, elbow, 3 or more view completed [email or web address] [facility] [place] [address] [facility] [address], [place], [address], 09/26/2022 16:48:07 10/17/2022 XR, wrist, 3 or more view completed [email or web address] [facility] [place] [address], [place], [address], 10/17/2022 12:46:13 10/17/2022 XR, shoulder, 2 or more view completed [email or web address] [facility] [place] [address] [facility] [address], [place], [address], 10/17/2022 12:46:07 Procedure Notes None recorded. Medical Equipment None Reported. Allergies Allergen ID Allergen Name Allergen Category Reaction Reaction Severity Criticality Documentation Date Start Date Code Code System Note Provider Name and Address Organization Details Recorded Time 00650 shellfish derived food,medi cation Not available Not available Not available 09/14/2022 34103 UNK Not Available [facility] 01:48:52 Medications Name Sig Start Date Stop Date Status Note LastModified by Organization Details LastModified Time prednisone 10 mg tablet TAKE 3 TABLETS BY MOUTH DAILY active Not Available Not Available No t Available alprazolam 1 mg tablet TAKE 1 TABLET BY MOUTH TWICE DAILY active Not Available Not Available No t Available valacyclovir 500 mg tablet TAKE 1 TABLET BY MOUTH EVERY DAY active Not Available Not Available No t Available potassium 99 mg tablet Take by oral route. 2022 active Not Available Not Available Not Avai lable imiquimod 5 % topical cream packet APPLY TO AFFECTED AREAS OF SKIN 3X A WEEK. WASH OFF AFTER 6-10 HOURS active Not Available Not Available N ot Available tacrolimus 0.1 % topical ointment APPLY TOPICALLY TO THE AFFECTED AREA TWICE DAILY. RUB IN WELL active Not Available Not Available No t Available magnesium 250 mg tablet Take by oral route. 2022 active Not Available Not Available Not Avai lable oxycodone-anabel taminophen 7.5 mg-325 mg tablet TAKE 1 TABLET BY MOUTH EVERY 6 HOURS NEEDED FOR PAIN active Not Available Not Available No t Available zolpidem 10 mg tablet TAKE 1 TABLET BY MOUTH EVERY DAY AT BEDTIME NEEDED FOR SLEEP active Not Available Not Available No t Available propranolol 20 mg tablet TAKE 1 TABLET BY MOUTH TWICE DAILY active Not Available Not Available No t Available oxycodone 5 mg tablet TAKE 1/2 TABLET BY MOUTH EVERY 6 HOURS NEEDED FOR PAIN. active Not Available Not Available No t Available vitamin E 180 mg 2022 active Not Available Not Available Not Avai lable Calcium 600 2022 active Not Available Not Available Not Avai lable multivitamin 2022 active Not Available Not Available Not Avai lable ascorbic acid (vit C) 1,000 mg-multivitam in with minerals no.18 tablet Take by oral route. 2022 active Not Available Not Available Not Avai lable sodium,potass ium,mag sulfates 17.5 gram-3.13 gram-1.6 gram oral soln MIX AND DRINK DIRECTED active Not Available Not Available No t Available Vitals Date Recorded Body mass index (BMI) Body height Body weight Provider Name and Address Organization Details Last Updated DateTime 08/29/2022 19.3 kg/m2 170.18 cm 70962.86 g Not Available Camila [facility] 09/14/2022 01:47:49 Date Recorded Body height Body mass index (BMI) Body weight Provider Name and Address Organization Details Last Updated DateTime 09/26/2022 170.18 cm 18.6 kg/m2 77229.49 g KANE Perez [facility] 09/26/2022 15:36:06 Date Recorded Body height Body mass index (BMI) Body weight Provider Name and Address Organization Details Last Updated DateTime 10/17/2022 170.18 cm 18.8 kg/m2 02518.08 g KANE Perez [facility] [employer] [facility] 10/17/2022 11:01:17 Date Recorded Body height Body mass index (BMI) Body weight Provider Name and Address Organization Details Last Updated DateTime 11/28/2022 170.18 cm 18.8 kg/m2 97810.08 dylan Cruz, [facility] [employer] [facility] [employer] [facility] 11/28/2022 15:36:26 Date Recorded Body height Body mass index (BMI) Body weight Provider Name and Address Organization Details Last Updated DateTime 01/30/2023 170.18 cm 19.4 kg/m2 10154.45 dylan Sheppard, [facility] [place] [employer] [facility] [employer] [facility] 01/30/2023 09:04:46 Social History Question Answer Notes LastModified by ideasoftizat ion Details LastModified Time Tobacco Smoking Status Unknown If Ever Smoked Not Available [facility] 09/14/2022 01:47:13 What Is Your Level Of Alcohol Consumption? None [id number] Information not available 09/14/2022 What Was The Date Of Your Most Recent Tobacco Screening? 08/22/2022 [id number] Information not available 09/14/2022 Sex: Unknown Functional Status None recorded. Mental Status None recorded. Family History Relationship Description Onset Age of this Age Resolved Age Notes LastModified by Organization Details LastModified Time Father Hypertensive disorder [id number] Not available 09/14/2022 01:47:31 Medical History No medical history recorded. Gynecological HistoryNo gynecological history recorded. Obstetrics History GPAL:G 0 P 0 0 0 0 Past Encounters Encounter ID Performer Location Encounter Start Date Encounter Closed Date Diagnosis/Indication Diagnosis SNOMED-CT Code Diagnosis ICD10 Code Diagnosis Note [id number] [facility] [place] [address] [place] [address] 08/22/2022 00:00:00 08/22/2022 12:07:34 [id number] [facility] [place] [address] [place] [address] 08/29/2022 00:00:00 08/29/2022 12:08:27 [id number] Ladarius Allen MD [facility] [place] [address] [place] [address] 09/26/2022 15:32:57 09/26/2022 16:14:10 Multiple closed fractures of distal humerus 785459897 S42.401D patient will continue with aggressive therapy discontinu e the brace and sling and I will see her back in 3 weeks for follow-up x-ray goal is 25 or so on extension 130 or so on flexion if she is still short of these we might get a joint active system dynamic brace [id number] Ladarius Allen MD [facility] [place] [address] [place] [address] 10/17/2022 10:56:32 10/17/2022 11:36:21 Multiple closed fractures of distal humerus 359494393 S42.401D patient can now start strengthen ing as tolerated continue working on her extension and her flexion Pain of ri ght shoulder joint 2088414069 5239716 M25.511 have therapy work with her on her shoulder range of motion and strengthen ing of her rotator cuff and we will see her back in 6-8 weeks for follow-up [id number] [facility] [place] [address] [place] [address] 11/28/2022 15:23:12 11/30/2022 17:06:22 Multiple closed fractures of distal humerus 328900023 S42.401D 62-year-ol d female 3 months status post ORIF of the right distal humerus supracondy lar fracture on 08/23/2022 . she will continue with physical therapy once a week for the next 4 weeks to work on range of motion of her elbow, with the goal of obtaining 10 more degrees of extension and flexion. We discussed at home exercise that she can be doing to aid in regaining some of that motion. advised her that we cannot take hardware out of her elbow until she is at least a year postop. She will follow-up in 2 months with repeat x-ray. Pain of ri ght shoulder joint 7573635177 2071526 M25.511 patient will work with physical therapy to help with continued strengthen ing and range of motion for shoulder impingemen t. [id number] [facility] [place] [address] [place] [address] 01/30/2023 09:02:19 01/30/2023 10:25:31 Multiple closed fractures of distal humerus 207335891 S42.401D Health Concerns Section Related Observation LastModified by Organization Detai ls LastModified Time None Recorded Concern Status LastModified by Organization Details LastModified Time None Recorded Advance Directives Directive None Recorded Payers Encounter Date Sequence Insurance Name Policy Number Policy [place] Covered Member ID [place] Member ID Guarantor Name 09/26/2022 1 R [id number] Denise Ibrahim Cristopher [id number] Glo Sandi 09/26/2022 2 [place] [id number] Glo Junior [id number] Glo Sandi 10/17/2022 1 UMR [id number] Denise J Cristopher [id number] Glo Junior 10/17/2022 2 [place] [id number] Glo Junior [id number] Glo Sandi 11/28/2022 1 UMR [id number] Denise J Cristopher [id number] Glo Sandi 11/28/2022 2 [place] [id number] Glo Sandi [id number] Glo Sandi 01/30/2023 1 UMR [id number] Denise J Cristopher [id number] Glo Junior Notes Date Note Type Note Provider Name and Address Organization Details Recorded Time 09/26/2022 text/html Patient has been doing therapy now status post ORIF of a distal humerus fracture no issues at this point other than a little stiffness as is common early on after of this type of injury Ladarius Allen MD [address], [place], [address], [employer] 09/26/2022 16:48:46 10/17/2022 text/html patient underwen t ORIF of her distal humerus 2 months ago 08/23/2022 doing very well with therapy now comes in today for follow-up shoulder pain gradually improving as well from her fall Ladarius Allen MD [address], [place], [address], [employer] 10/17/2022 12:46:45 11/28/2022 text/html 62-year-old fema le approximately 3 months status post ORIF of right distal humerus supracondylar fracture on 08/23/2022. patient completed a course of physical therapy for her elbow and pain in her right shoulder. She has noticed some improvement in her elbow motion but continues to lack motion with full flexion and full extension. She also has improvement in her motion and strength in the right shoulder but continues to have some tightness in the anterior shoulder with certain motions. [employer]I Dash [address], [place], [address], [employer] [facility] [email or web address] [facility] 11/28/2022 16:43:04 01/30/2023 text/html 62-year-old fema le approximately 5.5 months status post ORIF of right distal humerus supracondylar fracture on 08/23/2022. Since her last visit she has continued with physical therapy working on regaining motion in her elbow and regaining motion and strength in the right shoulder. She states that she has also been experiencing some tightness in her forearm close to the medial aspect of her elbow. she has been doing forearm stretches and feels a pulling in that same area with wrist extension stretches. [employer] Dash [address], [place], [address], [employer] [facility] [employer] 01/30/2023 10:16:08 OBGyn Episode No OBEpisode recorded.
--- OUTSIDE RECORDS SUMMARY | 2024-09-17 11:13 | XMS_ITS | Clinical Summary ---
Author Organization [facility] Address [address] [address] Phone Care Team Providers Care Home Care Rn Name Role Phone Suha Velez MD Primary Care Provider [phone] Social History Tobacco Use Types Packs/Day Years Used Date Smoking Tobacco: Never Assessed Comments Unknown Sex and Gender Information Value Date Recorded Sex Assigned at Not on file Legal Sex Female 12:03 AM CDT Gender Identity Not on file Sexual Orientation Not on file Plan of Treatment Health Maintenance Due Date Last Done Comments Hepatitis C Virus (HCV) Screening 1961 TdaP Immunization 1961 Pap Smear 1982 Cervical Cancer Screening (CCS) 1991 HPV/Cotest 1991 Colonoscopy 2006 Colorectal Cancer Screening 2006 Cologuard 2011 Immunochemical Fecal Occult Blood 2011 Mammogram 2011 Pneumococcal Immunization (5 0+ years) (1 of 1 - PCV) 2011 Zoster Immunization (1 of 2) 2011 Influenza Immunization (#1) 2024 SARS-COV-2 Immunization ( - season) 2024 Respiratory Syncytial Virus (RSV) Immunization (Adult) (1 - 1-dose 75+ series) 02/01/2036 Hepatitis B Immunization Aged Out No longer eligible based on patient's age to complete this topic Meningococcal Immunization (ACWY) Aged Out No longer eligible based on patient's age to complete this topic Pneumococcal Immunization Combined Aged Out No longer eligible based on patient's age to complete this topic Rotavirus Immunization Aged Out No lo nger eligible based on patient's age to complete this topic Insurance on file Care Teams Home Care Rn Relationship Specialty Start Date End Date Suha Velez MD [address] [place], [place] [id number] PCP - General Family Medicine 05/11/16
--- OUTSIDE RECORDS SUMMARY | 2024-09-17 11:13 | XMS_ITS | Patient Health Summary ---
Author Organization [facility] Address [address] [place] [address] Care Team Providers Care Underground Foreman Name Role Phone Otf Adams MD Primary Care Provider + Note from [facility],non-owned Affiliates and Associated Physician Practices is amultiple site organization consisting of ambulatory clinics and hospital sitesin [place], [place], [place] and [place]. This disclosure is being madepursuant to the Care Everywhere program and may not contain all information available regarding this patient. Last updated 18.[facility] Allergies * Povidone Iodine(Unknown) -Low Criticality * Shellfish Allergy(Shortness of Breath,Swelling) -High Criticality Medications * Be aware that medications may not be up to date on this document. Alwaysverify current medications with the patient. * zolpidem (AMBIEN) 10 MG tablet(Started 05/10/2017) Take 1 (one) tablet by mouth at bedtime * Multiple Vitamin (MULTI VITAMIN PO) Take 1 tablet by mouth once daily * Naxgqgy-Ltsofbenrorpb-Aajpurlc (EXCEDRIN MIGRAINE PO) Take 2 tablets by mouth as needed * propranolol (INDERAL) 20 MG tablet(Started 06/19/2019) Take 1 (one) tablet by mouth 2 times daily * ALPRAZolam (Xanax) 1 MG tablet(Started 08/14/2022) Take 1 (one) tablet by mouth 2 times daily * valACYclovir (Valtrex) 500 MG tablet Take 1 (one) tablet by mouth once daily * VITAMIN E PO(Started 08/16/2022) 180 mg * Potassium (POTASSIMIN PO)(Started 08/16/2022) Take by oral route. * senna (Senokot) 8.6 MG tablet(Started 04/30/2024) Take 1 (one) tablet by mouth 2 times daily Hold for loose stool or diarrhea * acetaminophen (Tylenol) 325 MG tablet(Started 04/30/2024) Take 3 (three) tablets by mouth every 6 hours as needed for Fever or Pain Maximum allowable Acetaminophen amount = 4 Grams (4000 mg) / 24 hours. * MAGNESIUM PO * CALCIUM PO * Pyridoxine HCl (VITAMIN B-6 PO) * Multiple Vitamins-Minerals (ZINC PO) * Methylcobalamin (F41-TDDGMT PO) Active Problems Problem Noted Date Diagnosed Date History of cervical cancer 09/04/2012 S/P augmentation mammoplasty 01/30/2011 Social History Tobacco Use Types Packs/Day Years [...] Mass Index 19.11 05/12/2024 9:01 AM CDT Procedures * CARDIAC RHYTHM STRIP ORDER(Performed 05/02/2024) * PATHOLOGY TISSUE EXAM (STL)(Performed 04/30/2024) Performed for Diagnosis unknown * ENDOTRACHEAL TUBE NOTE(Performed 04/30/2024) * DE DESTRUC,VULVA LESION,SIMPLE(Performed 04/30/2024) Performed for Diagnosis unknown * DE PART SIMPLE REMV VULVA(Performed 04/30/2024) Performed for Diagnosis unknown * CULTURE AEROBIC(Performed 12/18/2023) Performed for Ulcer of right leg, with fat layer exposed (HCC) * CULTURE AEROBIC(Performed 12/03/2023) Performed for Ulcer of right leg, with fat layer exposed (HCC) * PAP IMAGE-GUIDED W HPV(Performed 11/29/2023) Performed for History of cervical cancer * HPV DETECTION HIGH RISK RANDY(Performed 11/29/2023) Performed for History of cervical cancer * PROC MOHS SURG HEAD/NECK/HAND/FEET/SARAHI(Performed 11/21/2023) Performed for SCC (squamous cell carcinoma), leg, right * DERMATOPATHOLOGY(Performed 10/10/2023) * PATHOLOGY TISSUE(Performed 03/05/2023) Performed for Atypical squamous cell changes of undetermined significance (ASCUS) on vaginal cytology with positive high risk human papilloma virus (HPV), History of radiation therapy, History of cervical cancer * XR HUMERUS RIGHT 2VW OR MORE(Performed 08/17/2022) Performed for Right elbow pain * XR ELBOW RIGHT 3VW OR MORE(Performed 08/17/2022) Performed for Right elbow pain * PAP IMAGE-GUIDED W HPV(Performed 01/04/2022) Performed for Encounter for gynecological examination without abnormal finding, History of cervicalcancer * HPV DETECTION HIGH RISK RANDY(Performed 01/04/2022) Performed for Encounter for gynecological examination without abnormal finding, History of cervicalcancer * DERMATOPATHOLOGY(Performed 06/20/2021) * PAP IMAGE-GUIDED W HPV(Performed 06/01/2021) Performed for Encounter for gynecological examination without abnormal finding, History of cervicalcancer, Vaginal high risk human papillomavirus (HPV) DNA test positive * HPV GENOTYPES 16,18/45(Performed 06/01/2021) Performed for Encounter for gynecological examination without abnormal finding, History of cervicalcancer, Vaginal high risk human papillomavirus (HPV) DNA test positive * HPV DETECTION HIGH RISK RANDY(Performed 06/01/2021) Performed for Encounter for gynecological examination without abnormal finding, History of cervicalcancer, Vaginal high risk human papillomavirus (HPV) DNA test positive * PAP IMAGE-GUIDED W HPV(Performed 07/30/2019) Performed for History of cervical cancer, Vaginal high risk human papillomavirus (HPV) DNA test positive * HPV GENOTYPES 16,18/45(Performed 07/30/2019) Performed for History of cervical cancer, Vaginal high risk human papillomavirus (HPV) DNA test positive * HPV DETECTION HIGH RISK RANDY(Performed 07/30/2019) Performed for History of cervical cancer, Vaginal high risk human papillomavirus (HPV) DNA test positive * PAP IMAGE-GUIDED W HPV(Performed 01/22/2019) Performed for Abnormal Pap smear of vagina, History of cervical cancer, Vaginal high risk human papillomavirus (HPV) DNA test positive * HPV DETECTION HIGH RISK RANDY(Performed 01/22/2019) Performed for Abnormal Pap smear of vagina, History of cervical cancer, Vaginal high risk human papillomavirus (HPV) DNA test positive * PAP IMAGE-GUIDED RFLX HPV(Performed 06/04/2018) Performed for Malignant neoplasm of cervix, unspecified site (HCC), Abnormal Pap smear of vagina * HPV DETECTION HIGH RISK RANDY(Performed 06/04/2018) Performed for Malignant neoplasm of cervix, unspecified site (HCC), Abnormal Pap smear of vagina * PAP IG RFLX HPV ASCU(Performed 05/23/2017) * PATHOLOGY/GENETICS HISTORICAL-ONBASE(Performed 03/04/2014) * PATHOLOGY/GENETICS HISTORICAL-ONBASE(Performed 03/04/2014) * PAP THINPREP(Performed 09/04/2012) * PATHOLOGY/GENETICS HISTORICAL-ONBASE(Performed 09/04/2012) * PATHOLOGY/GENETICS HISTORICAL-ONBASE(Performed 09/04/2012) * PAP IG RFLX HPV ASCU(Performed 02/21/2012) * PAP IG RFLX HPV ASCU(Performed 05/17/2011) * PATHOLOGY/GENETICS HISTORICAL-ONBASE(Performed 01/30/2011) * PAP THINPREP(Performed 03/07/2010) * PAP SMEAR 1 SLIDE(Performed 06/28/2009) * PATHOLOGY/GENETICS HISTORICAL-ONBASE(Performed 06/28/2009) * XR SKULL 4VW OR MORE(Performed 03/11/2009) Performed for Head Contusion * GROSS + MICRO EXAM(Performed 12/24/2002) Results * CARDIAC RHYTHM STRIP ORDER (05/02/2024 7:50 PM CDT) Narrative 05/02/2024 7:50 PM CDT Ordered by an unspecified provider. Scanned Document CARDIAC SERVICES ORD ERABLES * PATHOLOGY TISSUE EXAM (STL) (04/30/2024 9:15 AM CDT) Case Report Surgical Pathology Report Case: [id number] Authorizing Provider: Seth Locke MD Collected: 04/30/2024 09:15 AM Ordering Location: [facility] Received: 04/30/2024 10:29 AM Pathologist: Cortez Forrester MD Specimen: Mass, VAGINAL MASS STITCH AT 12 O'CLOCK 05/01/2024 11:45 AM CDT [facility] Final Diagnosis Vaginal mass, excision: - Benign polypoid squamous mucosa 05/01/2024 11:45 AM [facility] Clinical History Per brief operative note (04/30/24), 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 05/01/2024 11:45 AM T [facility] Gross Description The requisition and specimen are identified with the patient's name (Glo Junior). Received in formalin, specimen A, vaginal mass stitch at 12:00 is an excision of pink-marquez skin [2.8 cm (12 to 6 o'clock) x 0.6 cm (3 to 9 o'clock)] excised to maximum depth of 0.2 cm. The epidermal surface is pink-white to pink-marquez, glistening and contains multiple smooth nodules (ranging from 0.4 to 0.8 cm in greatest dimension). The subcutaneous tissue consists of pink-marquez, cauterized, rubbery soft tissue. The specimen is inked as follows: 12 to 3 to 6 o'clock - blue 6 to 9 to 12 o'clock - orange Deep - black The specimen is sectioned from 12 o'clock to 6 o'clock, to show the nodules grossly appear to emanate from the top layer of the epidermis and do not extend into the epidermis. The nodules are located 0.2 cm from the nearest deep margin. The cut surfaces are pink-marquez and glistening to marquez-white and firm. The specimen is submitted entirely as follows: A1 - 12 o'clock tip, perpendicular; A2 - 6 o'clock, perpendicular; A3-A4 - central portion of specimen. /AL 05/01/2024 11:45 AM [facility] Microscopic Description Microscopic examination substantiates the diagnosis above. 05/01/2024 11:45 AM [facility] Pathologist Location at [facility] 05/01/2024 11:45 AM CDT [facility] Disclaimer All histochemical and/or immunohistochemical results are interpreted with controls that demonstrate appropriate staining reactions before reporting results. Note on use of immunocytochemistry reagents: This test was developed and its performance characteristic determined by [facility], Department of Laboratory Medicine. It has not been cleared or approved by the U.S. Food and Drug Administration (FDA). The FDA has determined that such clearance or approval is not necessary. The test is used for clinical purpose. It should not be regarded as investigational or for research. This laboratory is certified to perform high complexity testing. The performance characteristics of the IHC/CATALINA assays have been validated on formalin-fixed paraffin embedded tissues only. The assays have not been validated on decalcified tissues. Results should be interpreted with caution. 05/01/2024 11:45 AM CDT [facility] Embedded Images 05/01/2024 11:45 AM CDT [facility] Pathology/Cytolo gy MASS / Unknown 04/30/2024 9:15 AM CDT 04/30/2024 10:29 AM CDT Comment:Pre-op diagnosis: Diagnosis unknown [R69] Seth Locke MD LAB - PATHOLOGY/CYTO LOGY ORDERABLES Performing Organization Address City/State/[facility] de Phone Number [facility] [address] [place] [address] * ETT LINE PERFORMABLE (04/30/2024 9:10 AM CDT) Narrative Corinne Warren APRN-CRNA - 04/30/2024 9:10 AM CDT Corinne Warren APRN-CRNA 04/30/2024 9:10 AM Endotracheal Tube Placement: Patient Location: OR. Intubation Event Date/Time: 04/30/2024 8:49 AM Procedure: intubation (37790) Procedure Section: Sedation: under general anesthesia. Indications for Airway Management: anesthesia Induction: standard IV Patient Position: sniffing Mask Ventilation: easy. Blade Type: Win Blade Size: 2 Laryngoscopy View: grade 2 (partial cords) Intubation Adjuncts: stylet and cricoid pressure Tube: endotracheal tube Placement: oral Tube type: cuff - inflated Tube Size (MM): 7 Depth of Insertion (CM): 22 Measured From: lips Cuff volume (mL): 7 Cuff Inflated With: air Number of Attempts: 1. Placement Verified By: direct visualization, bilateral breath sounds, chest auscultation and CO2 monitor Tube secured with: adhesive tape. Dentition unchanged? Yes Difficult Airway? No. Procedure Start Time: 04/30/2024 8:49 AM. Staff Section Anesthesia Provider: Corinne Warren APRN-STITCHER AROUND, Performed the procedure Alexys Kumar MD GENERAL ANESTHESIA ORDERABLES * CULTURE AEROBIC (12/18/2023 10:08 AM CDT) Only the most recent of2 resultswithin the time period is included. Pathologist [facility] Comment: CULTURE, AEROBIC BACTERIA Micro Number: [id number] Test Status: Final Specimen Source: Skin Specimen Quality: Adequate Result: Growth of skin leif (note: Growth does not include S. aureus, beta-hemolytic Streptococci or P. aeruginosa). Test Performed at: [facility] [phone] LOW KAPOOR MD Microbiology MOHS SURGERY / Unknown 12/18/2023 10:08 AM CDT 12/19/2023 2:44 AM CDT Blaire Ramos MD LAB - MICROBIOLOGY O RDERABLES [address] [address] * HPV DETECTION HIGH RISK RANDY (11/29/2023 2:38 PM CDT) Only the most recent of6 resultswithin the time period is included. High Risk Human Papilloma Result Not detected Not detected 12/05/2023 8:27 AM CDT [facility] High Risk Human Papilloma Interp 12/05/2023 8:27 AM CDT [facility] Comment:High Risk Human [place] lloma Virus was Not Detected. Pathology/Cytolo gy MISCELLANEOUS SAMPLES / Unknown 11/29/2023 2:38 PM CDT 11/30/2023 1:01 PM CDT Narrative [facility] - 12/05/2023 8:27 AM CDT [...] Locke MD LAB - MICROBIOLOGY O RDERABLES [facility] [address] [id number] [phone] * PAP IMAGE-GUIDED W HPV (11/29/2023 2:38 PM CDT) Only the most recent of5 resultswithin the time period is included. Case Report Gynecologic Cytology Report Case: [id number] Authorizing Provider: Seth Locke MD Collected: 11/29/2023 02:38 PM Ordering Location: [facility] - Received: 11/30/2023 01:01 PM EYEGLASS LENS GENERATOR First Screen: Belgica Medina Specimen: THINPREP - IMAGE GUIDED, Cervix/Endocervix 12/04/2023 11:20 AM CDT [facility] LMP Hysterectomy 12/04/2023 11:20 AM CDT [facility] Menstrual Status Hysterectomy 2023 11:20 AM CDT [facility] Specimen Adequacy Satisfactory for evaluation, endocervical/trans formation zone component absent. 12/04/2023 11:20 AM CDT [facility] Categorization Negative for intraepithelial lesion or malignancy. 12/04/2023 11:20 AM CDT [facility] Interpretation COST ACCOUNTANT Negative for intraepithelial lesion or malignancy. 12/04/2023 11:20 AM CDT [facility] Pap Footnote The Pap Smear is a screening test. False positive and false negative results occur. Negative results do not preclude abnormalities, thus clinical correlation is required. This specimen was evaluated by the ThinPrep Imaging System along with an additional manual rescreening by a hat band attacher and/or pathologist. 12/04/2023 11:20 AM CDT [facility] Embedded Images 11:20 AM CDT [facility] Pathology/Cytolo gy MISCELLANEOUS SAMPLES / Unknown 11/29/2023 2:38 PM CDT 11/30/2023 1:01 PM CDT Seth Locke MD LAB - PATHOLOGY/CYTO LOGY ORDERABLES [facility] [address] [phone] * PROC MOHS SURG HEAD/NECK/HAND/FEET/SARAHI (11/21/2023 4:00 PM CDT) Narrative Blaire Ramos MD - 11/21/2023 4:00 PM CDT Blaire Ramos MD 11/21/2023 4:52 PM Mohs Micrographic Surgery Operative Note Procedure: Mohs micrographic surgery Date of service: 11/21/2023 Location: Right tib Preop diagnosis: Squamous cell carcinoma Postop diagnosis: Same Mohs AUC score: 8 Number of stages: 2 Preop size: 3.0 x 2.3 cm Postop size: 3.2 x 5.0 cm Depth of final defect: adipose Previous dermpath accession #: [id number] Repair type: second intent Mohs accession #: [id number] Surgeon and Pathologist: Blaire Ramos MD served as both surgeon and pathologist. No other physician was involved in the cancer removal or pathology interpretation. Assistants: Darrell Newton MD Indications for Mohs Surgery Removal of the patient's tumor is complicated by the following clinical features: Clinical area critical for tissue conservation (Area M: cheeks, forehead, scalp, neck, jawline, pretibial surface). Based on my medical judgement, Mohs surgery is the most appropriate treatment for this cancer compared to other treatments. I discussed alternative treatments to Mohs surgery and specifically discussed the risks and benefits of curettage, excision with permanent sections, and foregoing treatment. The rationale for Mohs was explained to the patient and consent was obtained. The risks, benefits and alternatives to therapy were discussed in detail. Specifically, the risks of infection, scarring, bleeding, prolonged wound healing, incomplete removal, allergy to anesthesia, nerve injury and recurrence were addressed. Prior to the procedure, the treatment site was clearly identified and confirmed by the patient. All components of Sherman Protocol/PAUSE Rule completed. STAGE I: The patient was placed on the operating table. The cancer was identified and outlined. The entire surgical field was prepped with hibiclens. The surgical site was anesthetized using Lidocaine 1% with epinephrine 1:100,000 buffered with sodium bicarbonate 8.4% in a 1:10 ratio.The area of clinically apparent tumor was debulked with a 4 mm curette. The layer of tissue was then surgically excised using a #15 blade and was then transferred onto a specimen sheet maintaining the orientation of the specimen. Hemostasis was obtained using monopolar electrodesiccation. The wound site was then covered with a dressing while the tissue samples were processed for examination. The specimen was oriented, mapped and divided. Each section was then inked and processed in the Mohs lab using the Mohs protocol and submitted for frozen section. The histopathologic sections were reviewed by the surgeon in conjunction with the reference map. Total blocks: 2 Total slides: 6 Frozen sections were examined by the surgeon and revealed residual tumor. Tumor was indicated in red on the reference map. Cell morphology: tumor nodules of atypical squamous cells in the epidermis and dermis with abundant keratinization (well differentiated SCC) Pathological pattern: Squamous cell carcinoma, well differentiated Depth of invasion: Dermis Scar tissue: Not Present Perineural invasion: Not Present Inflammation obscuring possible tumor presence: Not Present STAGE II: The patient was prepped in the same fashion as the first stage. Using a similar technique to that described above, a thin layer of tissue was removed from all areas where tumor was visible on the previous stage. The tissue was again oriented, mapped, dyed, and processed as above. Histopathologic sections were reviewed in conjunction with the reference map. Total blocks: 1 Total slides: 2 Frozen sections were examined by the surgeon and revealed: No additional tumor. Histology: No malignant cells seen in the sections examined. No additional histologic findings appreciated. Dalton Flowers [facility] CLIA # [id number] Mohs Flue Gas Analyst: Blaire Ramos MD REPAIR: Secondary Intention The patient is status-post Mohs micrographic surgery. The surgical site was examined with attention to normal anatomic and functional relationships. After consideration and discussion of multiple options with the patient, it was determined that healing by secondary intention would offer the best chance for preservation/scientology of all normal anatomic and functional relationships. The patient verbalized understanding and agreed with this plan. It is also understood that should second intention healing be sub-optimal, additional procedures such as scar revision, steroid injection or dermabrasion may be recommended. The open wound was cleaned and a thick layer of vaseline was applied. A pressure dressing consisting of non-adherent gauze, gauze, and hypafix was applied. Wound care was discussed with the patient both orally and in writing. The patient stated understanding and agreement with the course of care. No postoperative medications were prescribed. The patient will follow up in 4 week(s) for a wound check. Dr. Ramos performed the jarvis portions of the surgery, and documentation used to initiate this operative report. I entered the information in our [employer] DocFlowsheet with the information provided by Dr. Ramos on her handwritten, paper format, surgical worksheet, which was then used to initiate the create of this note. Dr. Ramos then reviewed and edited the note as needed to complete the note. Patricia Borrero MA A procedure was performed. I present for the jarvis portion of the procedure and was always immediately available. Date of Service : 11/21/2023 Blaire Ramos MD Blaire Ramos MD PROCEDURE/MINOR SURG ICAL ORDERABLES * DERMATOPATHOLOGY (10/10/2023 12:00 AM CDT) Only the most recent of2 resultswithin the time period is included. Case Report Dermatopathology Report Case: [id number] Authorizing Provider: Evaristo Stacy MD Collected: 10/10/2023 12:00 AM Ordering Location: [facility] - Received: 10/10/2023 04:19 PM DermPath Lab [...] characteristic determined by the Dermatopathology Laboratory at [facility], directed by Dr. Gene Moscoso. These tests need not be, and therefore are not, approved by the [place] Food and Drug Administration. The tests are used for clinical purposes. Billing Codes Specimen Charges Stain Charges 90101 [id number] 1 1 1:34 PM CDT [facility] LAB[facility] Embedded Images 1:34 PM CDT [facility] LABORATORY Pathology/Cytology TISSUE SPECIMEN FROM SKIN / Unknown 10/10/2023 10/10/2023 4:19 PM CDT Miscellaneous samples (specimen) TISSUE SPECIMEN FROM SKIN / Unknown 10/10/2023 10/10/2023 4:19 PM CDT Evaristo Stacy MD LAB - PATHOLOGY/CYTO LOGY ORDERABLES DERMATOPATHOLOGY LABORATORY [facility] - Department of Dermatology [address], [address] [phone] * PATHOLOGY TISSUE (03/05/2023 3:56 PM CDT) Case Report Surgical Pathology Report Case: [id number] Authorizing Provider: Seth Locke MD Collected: 03/05/2023 03:56 PM Ordering Location: [facility] - Received: 03/06/2023 12:15 PM [facility] Pathologist: Andrea Issa MD Specimens: A) - Vagina Biopsy, 10 oclock B) - Vagina Biopsy, 3 oclock 03/14/2023 4:44 PM CDT [facility] Final Diagnosis A. Vagina, 6:00, biopsy: - Superficial fragment of squamous epithelium with atrophic changes - Negative for dysplasia or malignancy Note: P16 immunohistochemical stain shows patchy positivity in some squamous cells (no block-like staining). Ki-67 stain highlights scattered basal and parabasal cells. The morphological and immunophenotyping results are compatible with the above impression. B. Vagina, 3:00, biopsy: - Scant fragment of squamous mucosa with mild focal chronic inflammation - Negative for dysplasia or malignancy Note: Multiple deeper levels were examined. 03/14/2023 4:44 PM CDT [facility] Microscopic Description and Comment Microscopic examination substantiates the final diagnosis. 03/14/2023 4:44 PM CDT [facility] Clinical History The patient is 63 years old woman with past medical history of cervical cancer cancer s/p total hysterectomy. Had last Pap on 02/2023 (ASCUS) on vaginal cytology with positive high risk human papilloma virus (HPV). 03/14/2023 4:44 PM CDT [facility] Gross Description The requisition and specimen(s) are identified with the patient's name, Glo Junior. Received in formalin, specimen A , is a white 0.4 x 0.1 x 0.1 cm fragment. It is submitted in a filter bag. Submitted entirely as A1. Received in formalin, specimen D , is a leal-marquez 0.5 x 0.3 x 0.1 cm fragment which is submitted in a filter bag. Submitted entirely as B1. CS 03/14/2023 4:44 PM CDT [facility] Pathologist Location at [facility] 03/14/2023 4:44 PM CDT [facility] Disclaimer The performance characteristics of all immunohistochemical and indirect immunofluorescence stains (if any) cited in this report were determined by the Histopathology Laboratory of [facility]. Some of these tests were developed by our own laboratory and have not been cleared or approved by the [place] Food and Drug Administration. The FDA does not require this test to go through premarket FDA review. These tests are used for clinical purposes. They should not be regarded as investigational or for research. This laboratory is certified under the Clinical Laboratory Improvement Amendments (CLIA) as qualified to perform high complexity clinical laboratory testing. This case has been personally reviewed and interpreted by the attending (teaching) pathologist. 03/14/2023 4:44 PM CDT [facility] Embedded Images 03/14/2023 4:44 PM CDT [facility] Pathology/Cytology VAGINAL BIOPSY SPECIMEN / Unknown 03/05/2023 3:56 PM CDT 03/06/2023 12:15 PM CDT Miscellaneous samples (specimen) VAGINAL BIOPSY SPECIMEN / Unknown 03/05/2023 3:56 PM CDT 03/06/2023 12:15 PM CDT Seth Locke MD LAB - PATHOLOGY/CYTO LOGY ORDERABLES Performing Organization Address City/State/[facility] Co de Phone Number [facility] [address] [phone] * XR HUMERUS RIGHT 2VW OR MORE (08/17/2022 7:39 PM AUTO EMISSIONS TECHNICIAN) Anatomical Region Laterality Modality Upper Extremity Radiographic Whit ging 08/17/2022 7:44 PM AUTO EMISSIONS TECHNICIAN Impressions 08/18/2022 1:07 AM AUTO EMISSIONS TECHNICIAN IMPRESSION: There is a splint which obscures the bony and soft tissue details. Acute comminuted mildly displaced supracondylar humeral fracture > Dictated by Hebron Cakir, MD (executive assistant to president). John Sagastume MD have personally reviewed and interpreted this examination/study. > Interpreting Provider: John Hollingsworth MD on 08/18/2022 1:07 AM Narrative 08/18/2022 1:07 AM AUTO EMISSIONS TECHNICIAN PROCEDURE: XR HUMERUS RIGHT 2VW OR MORE, XR ELBOW RIGHT 3VW OR MORE, DATE/TIME OF EXAM: 08/17/2022 7:40 PM, LOCATION [facility] INDICATION: M25.521: Right elbow pain ADDITIONAL CLINICAL INFORMATION: Ordering Provider Reason For Exam: fx (accession [id number]), Fx (accession [id number]) COMPARISON: None. FINDINGS: Right humerus: The proximal humerus is intact without acute fracture. The joint spaces are preserved. Bone density and texture are normal. Right elbow: There is a splint which obscures the bony and soft tissue details. There is an acute comminuted mildly displaced supracondylar humeral fracture Bone density and texture are normal. Soft tissue swelling is present. Procedure Note John Hollingsworth MD - 08/18/2022 PROCEDURE: XR HUMERUS RIGHT 2VW OR MORE, XR ELBOW RIGHT 3VW OR MORE, DATE/TIME OF EXAM: 08/17/2022 7:40 PM, LOCATION [facility] INDICATION: M25.521: Right elbow pain ADDITIONAL CLINICAL INFORMATION: Ordering Provider Reason For Exam: fx (accession [id number]), Fx(accession [id number]) COMPARISON: None. FINDINGS: Right humerus: The proximal humerus is intact without acute fracture. The joint spacesare preserved. Bone density and texture are normal. Right elbow: There is a splint which obscures the bony and soft tissue details. There is an acute comminuted mildly displaced supracondylar humeral fracture Bone density and texture are normal. Soft tissue swelling is present. IMPRESSION: There is a splint which obscures the bony and soft tissue details. Acute comminuted mildly displaced supracondylar humeral fracture > Dictated by Wilfrid Bryant MD (executive assistant to president). John Sagastume MD have personally reviewed and interpreted this examination/study. > Interpreting Provider: John Hollingsworth MD on 08/18/2022 1:07 AM Sharee Waldron PA-C DIAGNOSTIC IMAGING O RDERABLES * XR ELBOW RIGHT 3VW OR MORE (08/17/2022 7:39 PM AUTO EMISSIONS TECHNICIAN) Anatomical Region Laterality Modality Upper Extremity Radiographic Whit ging 08/17/2022 7:44 PM AUTO EMISSIONS TECHNICIAN Impressions 08/18/2022 1:07 AM AUTO EMISSIONS TECHNICIAN IMPRESSION: There is a splint which obscures the bony and soft tissue details. Acute comminuted mildly displaced supracondylar humeral fracture > Dictated by Wilfrid Bryant MD (executive assistant to president). I, John Hollingsworth MD have personally reviewed and interpreted this examination/study. > Interpreting Provider: John Hollingsworth MD on 08/18/2022 1:07 AM Narrative 08/18/2022 1:07 AM AUTO EMISSIONS TECHNICIAN PROCEDURE: XR HUMERUS RIGHT 2VW OR MORE, XR ELBOW RIGHT 3VW OR MORE, DATE/TIME OF EXAM: 08/17/2022 7:40 PM, LOCATION [facility] INDICATION: M25.521: Right elbow pain ADDITIONAL CLINICAL INFORMATION: Ordering Provider Reason For Exam: fx (accession [id number]), Fx (accession [id number]) COMPARISON: None. FINDINGS: Right humerus: The proximal humerus is intact without acute fracture. The joint spaces are preserved. Bone density and texture are normal. Right elbow: There is a splint which obscures the bony and soft tissue details. There is an acute comminuted mildly displaced supracondylar humeral fracture Bone density and texture are normal. Soft tissue swelling is present. Procedure Note John Hollingsworth MD - 08/18/2022 PROCEDURE: XR HUMERUS RIGHT 2VW OR MORE, XR ELBOW RIGHT 3VW OR MORE, DATE/TIME OF EXAM: 08/17/2022 7:40 PM, LOCATION [facility] INDICATION: M25.521: Right elbow pain ADDITIONAL CLINICAL INFORMATION: Ordering Provider Reason For Exam: fx (accession [id number]), Fx(accession [id number]) COMPARISON: None. FINDINGS: Right humerus: The proximal humerus is intact without acute fracture. The joint spacesare preserved. Bone density and texture are normal. Right elbow: There is a splint which obscures the bony and soft tissue details. There is an acute comminuted mildly displaced supracondylar humeral fracture Bone density and texture are normal. Soft tissue swelling is present. IMPRESSION: There is a splint which obscures the bony and soft tissue details. Acute comminuted mildly displaced supracondylar humeral fracture > Dictated by Wilfrid Bryant MD (executive assistant to president). I, John Hollingsworth MD have personally reviewed and interpreted this examination/study. > Interpreting Provider: John Hollingsworth MD on 08/18/2022 1:07 AM Sharee Waldron PA-C DIAGNOSTIC IMAGING O RDERABLES * (ABNORMAL) HPV GENOTYPES 16,18/45 (06/01/2021 11:49 AM AUTO EMISSIONS TECHNICIAN) Only the most recent of2 resultswithin the time period is included. [facility] Human papillomavirus Genotype 16 by TMA Detected(A) Not detected 06/06/2021 4:12 PM AUTO EMISSIONS TECHNICIAN [facility] Human papillomavirus Genotype 18/45 by TMA Not detected Not detected 06/06/2021 4:12 PM AUTO EMISSIONS TECHNICIAN [facility] Pathology/Cytolo gy ENTIRE VAGINA / Unknown 06/01/2021 11:49 AM AUTO EMISSIONS TECHNICIAN 06/01/2021 4:47 PM AUTO EMISSIONS TECHNICIAN Narrative [facility] - 06/06/2021 4:12 PM AUTO EMISSIONS TECHNICIAN This test detects E6/E7 viral messenger RNA of high-risk HPV types 16, 18, 31, 33, 35, 39, 45, 51, 52, 56, 58, 59, 66, and 68 associated with cervical cancer and its precursor lesions. Cross-reactivity with low risk HPV genotypes 26, 67, 70, and 82 may occur. Sensitivity may be affected by specimen collection methods, stage of infection, and the presence of interfering substances. Results should be interpreted in conjunction with other available laboratory and clinical data. Brody Hua MD LAB - MICROBIOLOGY O RDERABLES [facility] [address] [phone] * PAP IMAGE-GUIDED LIQUID BASE RFLX HPV (06/04/2018 10:35 AM AUTO EMISSIONS TECHNICIAN) Pathologist [facility] Case Report Gynecologic Cytology Report Case: [id number] Authorizing Provider: Brody Hua MD Collected: 06/04/2018 10:35 AM Ordering Location: [facility] Obstetrics Received: 06/05/2018 10:35 AM [facility] First Screen: Umesh Ferreirarad Rescreen: Vasquez Ly Pathologist: Vasquez Maguire MD Specimen: THINPREP - IMAGE GUIDED, Vagina 06/10/2018 2:38 PM AUTO EMISSIONS TECHNICIAN [facility] LMP hysterectomy 06/10/2018 2:38 PM AUTO EMISSIONS TECHNICIAN [facility] Menstrual Status Hysterectomy 2017 2:38 PM AUTO EMISSIONS TECHNICIAN [facility] Specimen Adequacy Satisfactory for evaluation. 06/10/2018 2:38 PM AUTO EMISSIONS TECHNICIAN [facility] Categorization Epithelial cell abnormality. 06/10/2018 2:38 PM [facility] Interpretation COST ACCOUNTANT Atypical squamous cells of undetermined significance (ASC-US). 06/10/2018 2:38 PM [facility] Other Atrophic changes. 018 2:38 PM AUTO EMISSIONS TECHNICIAN [facility] Pap Footnote This specimen was evaluated by the ThinPrep Imaging System along with the an additional manual rescreening by a hat band attacher and/or pathologist. 06/10/2018 2:38 PM [facility] Pathology/Cytolo gy ENTIRE VAGINA / Unknown 06/04/2018 10:35 AM AUTO EMISSIONS TECHNICIAN 06/05/2018 10:35 AM AUTO EMISSIONS TECHNICIAN Brody Hua MD LAB - PATHOLOGY/CYTO LOGY ORDERABLES [facility] [address] [phone] * (ABNORMAL) PAP IG RFLX HPV ASCU (05/23/2017 9:46 AM AUTO EMISSIONS TECHNICIAN) Only the most recent of3 resultswithin the time period is included. Pap Image-Guided Liquid-Based with Reflex HPV Accession No: [id number] Specimen:Vaginal ThinPrep Slides:1 SPECIMEN ADEQUACY: SATISFACTORY FOR EVALUATION INTERPRETATION: EPITHELIAL CELL ABNORMALITY ATYPICAL SQUAMOUS CELLS, CANNOT EXCLUDE A HIGH GRADE INTRAEPITHELIAL LESION OTHER FINDINGS: - Atrophic Changes and Inflammation NOTE(S): HPV REFLEX - HPV result to follow if ASCUS in separate report This specimen was evaluated by the ThinPrep Imaging System along with an additional manual rescreening by a hat band attacher and/or pathologist Initial Evaluation performed by Veena MCCLAIN ([facility]). Electronically signed 05/24/2017 Interpretation performed by Vasquez Maguire MD. Electronically signed 05/25/2017 (A) [facility] ([facility]) ENTIRE VAGINA / Unknown 05/23/2017 9:46 AM AUTO EMISSIONS TECHNICIAN 05/24/2017 9:10 AM AUTO EMISSIONS TECHNICIAN Narrative [facility] ([facility]) - 05/25/2017 1:49 PM AUTO EMISSIONS TECHNICIAN LMP-> hysterectomy Previous Pap:->03/04/14 Results of last pap?->Normal HPV positive Clinical Information:->Stage 1 B Ca of cervix, status post Radical hyst. LN dissection followed by RT for positive LN mets in December 2002 Brody Hua MD LAB - PATHOLOGY/CYTO LOGY ORDERABLES [facility] ([facility]) * PATHOLOGY/GENETICS HISTORICAL-ONBASE (03/04/2014) Only the most recent of6 resultswithin the time period is included. 03/04/2014 [facility] - 03/06/2014 3:18 PM CDT Brody Hua MD LAB - CHEMISTRY JAVED BOUDREAUX [facility] [address] [place] [address], [facility] * PAP THINPREP (09/04/2012) Only the most recent of2 resultswithin the time period is included. Cervical swab (specimen) PART OF UTERINE CERVIX / Unknown 09/04/2012 [facility] - 09/19/2012 11:26 AM AUTO EMISSIONS TECHNICIAN Previous Pap:->02/21/12 Results of last pap?->Normal unsat Clinical Information:->cervical cancer 1 B, RH, RT Brody Hua MD LAB - PATHOLOGY/CYTO LOGY ORDERABLES [facility] [address] * PAP SMEAR 1 SLIDE (06/28/2009) Other (qualifier value) 06/28/2009 Narrative [facility] - 07/20/2009 11:22 AM AUTO EMISSIONS TECHNICIAN This external order was created through the Results Console. Historical Provider LAB - PATHOLOGY/C YTOLOGY ORDERABLES Performing Organization Address City/[facility]/ZIP Co de Phone Number [facility] * XR SKULL COMPLETE 4+ VW (03/11/2009) Anatomical Region Laterality Modality Head Other Jose David Vega MD DIAGNOSTIC IMAGING O RDERABLES * GROSS + MICRO EXAM (12/24/2002 8:25 AM CDT) Result CASE NUMBER [id number] Comment: ORDERING PHYSICIAN ANTHONY HUA SPECIMEN TYPE Lymph Node-right iliac Date 12/24/2002 Physician Javid Gross Description 6 specimens are received in formalin, labeled with the patients name. 1-specimen is identified as `right iliac lymph node' and consists of a fragment of fibroadipose tissue measuring 5 x 2 x .8 cm. Radiotelephone Technical Operator sections submitted in A and B for candidate lymph nodes. 2-specimen is identified as `right common lymph node' and consists of an irregularly-shaped fragment of adipose tissue measuring 2 x 1 x .3 cm. Radiotelephone Technical Operator sections submitted in C. 3-specimen is identified as `left iliac common lymph node' and consists of a fragment of fibroadipose tissue measuring 4 x 3 x .5 cm. Radiotelephone Technical Operator sections submitted in cassette D, E, F. (E-serially sectioned lymph node, F-single serially sectioned lymph node) 4-specimen is identified as `right obturator node' and consists of a fragment of fibroadipose tissue measuring 3 x 3 x .5 cm. Radiotelephone Technical Operator sections are submitted in cassette G. candidate lymph nodes. 5-specimen is identified as `left obturator lymph node' and consists of a fragments of fibroadipose tissue measuring 2 x 2 x .5 cm. Grossly there is a single lymph node present. It is bisected and submitted in cassette H. 6-specimen is identified as `uterus, left and right tubes, ovaries, cervix and posterior vagina' and consists of a uterus that measures 6 x 5 x 3 cm. with attached cervix measuring 4.5 x 5.5 x 5 cm. The total weight of the uterus and cervix is 210 gms. The serosal surface of the uterus is slightly variegated in color from marquez brown to red. On both sides of the uterus and cervix, there is brownish soft tissue with multiple empty blood vessels present. There is a pericervical cuff of vaginal tissue that measures up to 2 cm in thickness. The specimen is opened revealing a triangular shaped uterus cavity measuring 4 x 2.5 cm. with a slightly reddish marquez internal lining. The myometrium measures up to 1.8 cm in thickness. Grossly the cervical mucosal surface appears slightly irregular, marquez in color. The resection margin along the length of the cervix is inked black. Cross sectioning through the uterus reveals two small white nodules of fibroid, one measures .3 x .3 cm and the other measures .5 x .5 cm. Sections are submitted as follows I-shave section from anterior german vaginal cuff, J-section thru posterior vaginal cuff, K to P-serial sectioning cervix 12 to 3 o'clock entirely submitted, Q to Z-serial sectioning cervix 9 to 12 o'clock entirely submitted. AA to II-cervix from 3 to 6 o'clock, entirely submitted, JJ to RR- cervix 6 to 9 o'clock entirely submitted, SS-myometrium anterior posterior. UU-fibroid nodules. The left ovary measures 2.8 x 2 x 1 cm. The left fallopian tube measures 8 x .6 cm. On sectioning thru the ovary there is a hemorrhagic cyst that measures 2.5 x 2 cm. The fallopian tube is grossly unremarkable. Radiotelephone Technical Operator sections are submitted in cassette VV. The right ovary measures 3.8 x 2 x 1.8 cm. The right fallopian tube measures 7 x .8 cm. There is a cyst that almost entirely replaces the ovary and measures 2.7 x 2.6 cm. filled with clear fluid. Radiotelephone Technical Operator sections are submitted in WW (ovary), XX-fallopian tube. TK/jermainec Microscopic Exam Examination of the five separate lymph node dissections reveals a total of 20 lymph nodes with evidence of metastatic squamous cell carcinoma in one lymph node from the left iliac common lymph node dissection. The tumor does not extend out into the perinodal adipose tissue. The vaginal cuff margin shows no evidence of dysplasia or malignancy. The entire cervix was submitted and reveals squamous cell carcinoma characterized by tongues and nests of malignant squamous epithelial cells that are large with abundant eosinophilic cytoplasm. Hyperchromatic nuclei and evidence of keratinization and intercellular bridge formation. Typical and atypical mitotic figures are evident. The tumor is eliciting a desmoplastic stromal and chronic inflammatory host response. The tumor has an infiltrative growth pattern. Lymphatic permeation is evident in multiple sections. The majority of the tumor is in the 3-6 o'clock quadrant with less tumor found in the 6-9 o'clock quadrant and focal areas of stromal invasion as well as lymphatic invasion in the remaining two quadrants. Examination of the endometrium reveals weakly proliferative pattern and no evidence of tumor involvement. The myometrium contains rare foci of adenomyosis and a small leiomyomata. Section of the left ovary reveals a focus of hemorrhage with adjacent fibrous stroma containing hemosiderin-laden macrophages, but with no discernable epithelial lining. There is no evidence of atypia or malignancy. The adjacent fallopian tube is unremarkable. Sections of the right ovary show multiple follicular cysts and no evidence of atypia or malignancy. The adjacent fallopian tube is unremarkable. GM/bk Diagnosis I. Uterus with cervix, bilateral tubes and ovaries A. Uterus, cervix, excision 1. Squamous cell carcinoma, grade II, FIGO 1B, N1, MX. 2. Maximal stromal tumor invasion, approximately 5.5 mm. 3. Extensive lymphatic permeation by tumor. 4. No evidence of tumor involving vagina. 5. Vaginal cuff surgical margin - free of malignancy. B. Uterus, endometrium, excision 1. Weakly proliferative pattern. C. Uterus, myometrium, excision 1. Leiomyoma. D. Ovary, right and left, excision 1. No pathologic diagnosis. E. Fallopian tube, right and left, excision 1. No pathologic diagnosis. II. Lymph nodes, left iliac common lymph node dissection A. Metastatic squamous cell carcinoma, 1 of 6. III. Lymph nodes, right iliac lymph node dissection A. Negative for malignancy, 8 of 8. IV. Lymph nodes, right common lymph node dissection A. Negative for malignancy, 3 of 3. V. Lymph nodes, right obturator lymph node dissection A. Negative for malignancy, 2 of 2. . Lymph nodes, left obturator lymph node dissection A. Negative for malignancy, 1 of 1. ROMINA/bk Sand Bobber bk Pathologist Kadie Peguero M.D. [place]. 12/25/2002 1528 <8> CPT code 95202 x5, 24789 x1 MISCELLANEOUS SAMPLES / Unknown 12/24/2002 8:25 AM CDT 12/24/2002 8:25 AM CDT Historical Provider LAB - PATHOLOGY/C YTOLOGY ORDERABLES Care Teams Underground Foreman Relationship Specialty Start Date End Date Otf Adams MD [address] [place] [id number] PCP - General 11/28/17
--- OUTSIDE RECORDS SUMMARY | 2024-09-17 11:13 | XMS_ITS | Referral Summary ---
Author Organization [facility] Address [address] [place] [address] Care Team Providers Care Telemetry Nurse Name Role Phone Otf Adams MD Primary Care Prov ider Allergies Active Allergy Reactions Criticality Noted Date Comments Shellfish Containing Products Anaphylaxis High 08/12 Medications oxyCODONE (ROXICODONE) 5 mg immediate release tabletIndicatio ns:Pain Take 0.5 tablets (2.5 mg total) by mouth every 6 (six) hours as needed for pain 12 tablet 08/13/2022 Active ALPRAZolam (XANAX) 1 mg tablet Take 1 mg by mouth 2 (two) times a day 08/14/2022 Active estradioL (ESTRACE) 0.01 % (0.1 mg/gram) vaginal cream Insert 1 g into the vagina nightly 06/01/2021 Active propranoloL (INDERAL) 20 mg tablet Take 20 mg by mouth 2 (two) times a day 07/31/2022 Active valACYclovir (VALTREX) 500 mg tablet Take 500 mg by mouth daily 07/31/2022 Active zolpidem (AMBIEN) 10 mg tablet Take 10 mg by mouth daily as needed 08/14/2022 Active Active Problems Problem Noted Date Diagnosed Date Closed fracture of right distal humerus 08/14/19 23 Overview (08/14/2022): Added automatically from request for surgery [id number] Social History Tobacco Use Types Packs/Day Years Used Date Smoking Tobacco: Unknown Tobacco Cessation:Counseling Given: Not Answered Personal Safety Answer Date Recorded Getting School Help Needed Not on file 08/29 Comments No Sex and Gender Information Value Date Recorded Sex Assigned at Not on file Legal Sex Female 1:39 AM SENIOR SQL SERVER DATABASE DEVELOPER Gender Identity Not on file Sexual Orientation Not on file Last Filed Vital Signs Vital Sign Reading Time Taken Comments Blood Pressure 112/71 08/12/2022 11:30 PM SENIOR SQL SERVER DATABASE DEVELOPER Pulse 86 08/13/2022 2:30 AM SENIOR SQL SERVER DATABASE DEVELOPER Temperature 36.8 C (98.3 F) 08/12/2022 11:30 PM SENIOR SQL SERVER DATABASE DEVELOPER Respiratory Rate 13 08/12/2022 11:34 PM SENIOR SQL SERVER DATABASE DEVELOPER Oxygen Saturation 97% 08/13/2022 2:30 AM SENIOR SQL SERVER DATABASE DEVELOPER Inhaled Oxygen Concentration - - Weight 59 kg (130 lb) 08/12/2022 11:31 PM SENIOR SQL SERVER DATABASE DEVELOPER Height 170.2 cm (5' 7 ) 08/12/2022 11:31 PM SENIOR SQL SERVER DATABASE DEVELOPER Body Mass Index 20.36 08/12/2022 11:31 PM SENIOR SQL SERVER DATABASE DEVELOPER Plan of Treatment Not on file Insurance [facility] Member Subscriber Plan / Payer (Ef fective 2022-Present) Name:Glo Bello Maritza Relation to Subscriber:Self Name:Glo Bello Maritza Payer ID:[id number] (NAIC) Type: CRISTI Address: [address] [facility] Member Subscriber Plan / Payer (Ef fective 2021-) Name:Glo Bello Maritza Relation to Subscriber:Spouse Name:GLO BELLO Maritza Date of :1961 (Home) Address: [address] [place] [address] Payer ID:[id number] (NAIC) Type:[facility] HMO/PPO Address: [address] [facility] Care Teams Telemetry Nurse Relationship Specialty Start Date End Date Otf Adams MD [address] [place] [address] PCP - General Family Medicine 08/12/22
--- OUTSIDE RECORDS SUMMARY | 2024-09-17 11:13 | XMS_ITS | Clinical Summary ---
Author Organization [facility] Address [address] [place] [address] Care Team Providers Care Articulation Officer Name Role Phone Otf Adams MD Primary [...] (08/14/2022): Added automatically from request for surgery [id number] Social History Tobacco Use Types Packs/Day Years Used Date Smoking Tobacco: Unknown Tobacco Cessation:Counseling Given: Not Answered Personal Safety Answer Date Recorded Getting School Help Needed Not on file 08/29 Comments No Sex and Gender Information Value Date Recorded Sex Assigned at Not on file Legal Sex Female 1:39 AM BODY WORKER Gender Identity Not on file Sexual Orientation Not on file Obstetrics History Last Filed Vital Signs Vital Sign Reading Time Taken Comments Blood Pressure 112/71 08/12/2022 11:30 PM BODY WORKER Pulse 86 08/13/2022 2:30 AM BODY WORKER Temperature 36.8 C (98.3 F) 08/12/2022 11:30 PM BODY WORKER Respiratory Rate 13 08/12/2022 11:34 PM BODY WORKER Oxygen Saturation 97% 08/13/2022 2:30 AM BODY WORKER Inhaled Oxygen Concentration - - Weight 59 kg (130 lb) 08/12/2022 11:31 PM BODY WORKER Height 170.2 cm (5' 7 ) 08/12/2022 11:31 PM BODY WORKER Body Mass Index 20.36 08/12/2022 11:31 PM BODY WORKER Plan of Treatment Health Maintenance Due Date Last Done Comments Breast Cancer Screening-Mammogram 1960 Cervical Cancer Screening 1960 Colon Cancer Screening-Colonoscopy 1960 Depression Screening 1960 Hepatitis C Screening 1960 DTaP/Tdap/Td Vaccine (1 - Tdap) 02/01/1972 Hepatitis B Screening 1979 Regular Well Visit/Exam 18-64 1979 Zoster Vaccine (1 of 2) 2011 Influenza Vaccine (#1) 2024 Pneumococcal vaccine <65 Aged Out No longer eligible based on patient's age to complete this topic Insurance [facility] HMO/PPO Address: [address] [address] [place] [address] [employer] [facility] HMO/PPO Address: [place] [phone] [facility] HMO/PPO Address: [address] [address] [place] [address] [employer] Care Teams Articulation Officer Relationship Specialty Start Date End Date Otf Adams MD [address] [place] [address] PCP - General Family Medicine 08/12/22
--- OUTSIDE RECORDS SUMMARY | 2024-09-17 11:13 | XMS_ITS | Referral Summary ---
Author Organization [facility] Address [address] [place] [address] Care Team Providers Care Linotype Mechanic Name Role Phone Otf Adams MD Primary Care Provider + Source Comments [facility],non-owned Affiliates and Associated Physician Practices is amultiple site organization consisting of ambulatory clinics and hospital sitesin [place], [place], [place] and [place]. This disclosure is being madepursuant to the Care Everywhere program and may not contain all information available regarding this patient. Last updated 18.[facility] Allergies Active Allergy Reactions Criticality Noted Date [...] Active Multiple Vitamins-Minerals (ZINC PO) Active Methylcobalamin (G35-[id number] PO) Active Active Problems Problem Noted Date [...] Description 11/10/2024 10:30 AM CDT Office Visit [facility] FUSING MACHINE OPERATOR [address] [place] [id number] Seth Locke MD [address] [facility] [address] [place] [address] Procedures Procedure Name Priority Date/Time Associated Diagnosis Comments HPV DETECTION HIGH RISK RANDY Routine 11/29/2023 2:38 PM CDT History of cervical cancer from Last 3 Months or Most Recently Relevant to Health Maintenance Results * HPV DETECTION HIGH RISK RANDY (11/29/2023 2:38 PM CDT) High Risk Human Papilloma Result Not detected Not detected 12/05/2023 8:27 AM CDT [facility] High Risk Human Papilloma Interp 12/05/2023 8:27 AM CDT [facility] Comment:High Risk Human [place] lloma Virus was Not Detected. Pathology/Cytolo gy MISCELLANEOUS SAMPLES / Unknown 11/29/2023 2:38 PM CDT 11/30/2023 1:01 PM CDT Narrative [facility] - 12/05/2023 8:27 AM [...] Locke MD LAB - MICROBIOLOGY O RDERABLES [facility] [address] [phone] from Last 3 Months or Most Recently Relevant to Health Maintenance Care Teams Linotype Mechanic Relationship Specialty Start Date End Date Otf Adams MD [address] [address] PCP - General 11/28/17
== END 2024-09-17 10:10 | disposition home or self-care (01) ==
PROVIDERS: PCP Family Medicine Adolescent Medicine; Visit Provider Physician Assistant
DX: J44.9 Chronic obstructive pulmonary disease, unspecified (principal); J45.909 Unspecified asthma, uncomplicated; J43.9 Emphysema, unspecified
CPT/HCPCS: 71250

== ENCOUNTER 2025-06-22 08:53 | Outpatient (CLI) | payer OTHER, SELFPAY ==
--- NOTE | ~2025-06-22 | DEXA_ITS ---
Bone Density Report Name: NUHA BELLO Age: 65 Sex: Female Ethnicity: White Date of : 1960 Indication: osteopenia; prior fracture; cancer; asthma or emphysema; hysterectomy; Referring Provider: BRANDIN LEWIS Study: Bone densitometry was performed. Exam Date: June 22, 2025 Accession number: [id number] Bone Density: Region BMD T-score Z-score Classification AP Spine(L1-L4) 0.893 -1.4 0.3 Osteopenia Femoral Neck (Left) 0.652 -1.8 -0.3 Osteopenia Total Hip (Left) 0.729 -1.7 -0.6 Osteopenia Femoral Neck (Right) 0.674 -1.6 -0.1 Osteopenia Total Hip (Right) 0.733 -1.7 -0.5 Osteopenia Total Hip Mean 0.731 -1.7 -0.6 Osteopenia World Health Organization criteria for BMD impression classify patients as: Normal (T-score at or above -1.0), Osteopenia (T-score between -1.0 and -2.5), or Osteoporosis (T-score at or below -2.5). 10-year Fracture Risk(1): Major Osteoporotic Fracture 13% Hip Fracture 1.8% Reported Risk Factors: [place] (), Neck BMD=0.652, BMI=18.9, previous fracture (1) FRAX(R) Version 3.08. Fracture probability calculated for an untreated patient. Fracture probability may be lower if the patient has received treatment. Previous Exams: -- Region Exam Age BMD T-score BMD Change BMD Change Date g/cm2 vs Baseline vs Previous -- AP Spine (L1-L4) 06/22/2025 65 0.893 -1.4 -4.8%* -3.6%* 06/18/2023 63 0.927 -1.1 -1.2% -1.2% 02/14/2018 58 0.938 -1.0 Total Hip(Left) 06/22/2025 65 0.729 -1.7 -10.4%* -5.4%* 06/18/2023 63 0.770 -1.4 -5.3%* -5.3%* 02/14/2018 58 0.813 -1.1 Total Hip(Right) 06/22/2025 65 0.733 -1.7 -11.8%* -2.9% 06/18/2023 63 0.755 -1.5 -9.2%* -9.2%* 02/14/2018 58 0.831 -0.9 -- *Denotes significance at 95% confidence level, LSC for AP Spine = 0.022 g/cm2, LSC for Total Hip = 0.027 g/cm2 Clinical Information Provided by Patient: Has had a low trauma fracture Has used the following medications: Vitamin D, Calcium Has the following medical conditions: Asthma or Emphysema, Cancer, Hysterectomy, cervical cancer Patient maximum height was 67 Menopause Age: 43 Drinks caffeinated beverages Onset of menses at age 16 Number of children 5 Impression: The patient has low bone mass, based on the Left Femoral Neck T-score. The patient has an estimated ten-year risk of hip fracture of 1.8% and an estimated ten-year risk of major fracture of 13%, based on the WHO FRAX algorithm. The patient has risk factors, including: previous fracture. The BMD for the AP Spine (L1-L4) decreased, changing by -3.6% since the last DXA exam. The BMD for the Total Hip(Left) decreased, changing by -5.4% since the last DXA exam. Discussion: BONE DENSITY IS LOW AT ONE OR MORE SKELETAL SITES. This patient's lowest T-score is low at one or more skeletal sites. It meets the World Health Organization's (WHO) criteria for ?low bone mass? (T-score between -1.0 and -2.5). The patient's 10-year risk of fracture as calculated by FRAX is less than the threshold where pharmacological therapy is recommended by the National Osteoporosis Foundation (NOF). However, all treatment decisions require clinical judgment and consideration of individual patient factors, including patient preferences, comorbidities, previous drug use, risk factors not captured in the FRAX model (e.g., frailty, falls, vitamin D deficiency, increased bone turnover, interval significant decline in bone density) and possible under or overestimation of fracture risk by FRAX. The patient should follow a healthful lifestyle (good nutrition with adequate calcium and vitamin D, and appropriate weight-bearing exercise). Follow-Up: Consider repeating this study in 2 years to reassess this patient's status, or sooner if there is some new clinical indication. Reported by: MAUREEN on 06/22/2025 9:13:00 AM. Reviewed, dictated and finalized at location A.
== END 2025-06-22 08:54 | disposition home or self-care (01) ==
LOC: MICIMG 08:53
PROVIDERS: PCP Nurse Practitioner Family; Visit Provider Obstetrics & Gynecology Gynecology
DX: M85.89 Other specified disorders of bone density and structure, multiple sites (principal); Z78.0 Asymptomatic menopausal state
CPT/HCPCS: 77080